=== PATIENT | male | born 1965 | race Caucasian/White ===

== ENCOUNTER 2024-01-16 11:45 | Observation (INO) | payer OTHER ==
[2024-01-16] MEDS ORDERED: Zofran 4 MG/2 ML VIAL ONE (12:20)
[2024-01-16] MEDS ORDERED: Sodium Chloride 0.9% 1000 ML 1,000 ML ONE (12:20)
[2024-01-16] MEDS ORDERED: PROTONIX 40 MG IV IV ONE (12:20)
[2024-01-16] MEDS ORDERED: MORPHINE SULFATE 4 MG INJ ONE (12:20)
[2024-01-16] MEDS: Sodium Chloride 0.9% 1000 ML 1,000 ML IV STA ×2 (12:23→18:42)
[2024-01-16] MEDS: Zofran 4 MG/2 ML VIAL IV ONE (12:27)
[2024-01-16] MEDS: PROTONIX 40 MG IV IV ONE (12:30)
[2024-01-16] MEDS: MORPHINE SULFATE 4 MG INJ IV ONE (12:35)
[2024-01-16 12:56] LABS: BASOPHIL % 0.4 % (0.2-1.2); Basophil (Absolute #) 0.04 x10^3/uL (0.01-0.08); Eosinophil % 0.2 % (0.8-7.0); Eosinophil (Absolute #) 0.02 x10^3/uL (0.04-0.54); Hematocrit 48.1 % (40.1-51.0); Hemoglobin 16.3 g/dL (13.7-17.5); IMMATURE GRAN # 0.07 x10^3u/L (0.001-0.031); IMMATURE GRAN % 0.7 % (0.001-0.429); Lymphocyte (Absolute #) 0.87 x10^3/uL (1.32-3.57); Lymphocytes % 8.3 % (21.8-53.1); Mean Cell Volume 85.6 fL (79.0-92.2); Mean Corpuscular Hgb Concent. 33.9 g/dL (32.3-36.5); Monocyte (Absolute #) 0.33 x10^3/uL (0.30-0.82); Monocytes % 3.1 % (5.3-12.2); Neutrophil % 87.3 % (34.0-67.9); Platelet Count 221 x10^3/uL (163-337); Red Blood Count 5.62 x10^6/uL (4.63-6.08); Red Cell Distribution Width 12.3 % (11.6-14.4); White Blood Count 10.5 x10^3/uL (4.23-9.07)
[2024-01-16 13:19] LABS: ALBUMIN 4.6 g/dL (3.5-5.0); BILIRUBIN,TOTAL 0.8 mg/dL (0.2-1.3); Calcium 10.1 mg/dL (8.4-10.2); Creatinine 1 1.12 mg/dL (0.66-1.25); EST GLOMERULAR FILTRATION RATE 77.1 ML/MIN; Potassium 4.3 mmol/L (3.5-5.1); Total Protein 7.3 g/dL (6.3-8.2)
[2024-01-16 13:26] LABS: Group A Strep NOT DETECTED (NEGATIVE)
[2024-01-16 13:37] LABS: INFLUENZA A NEGATIVE (NEGATIVE); INFLUENZA B NEGATIVE (NEGATIVE); RESPIRATORY SYNCTIAL VIRUS NEGATIVE (NEGATIVE); SARS-CoV-2 Xpert Express NEGATIVE (NEGATIVE)
--- NOTE | 2024-01-16 14:04 | ERPHSYRPT ---
- History of Present Illness Time Seen by Provider: 01/16/24 11:52 Historian: patient Exam Limitations: no limitations Patient Subjective Stated Complaint: Pt states "I am very nauseous help me." Triage Nursing Assessment: Pt presented alert and oriented X 3, skin pwd. PT ambulates with a slow gait. PT moaning. PT vomited x 1 Physician History: 58 years old male presented in the ER with sudden onset moderate to severe abdominal pain with associated nausea and multiple episodes of nonprojectile, nonbilious vomiting without hematemesis for almost half an hour prior to arrival. Patient reports moderate intensity sharp cramping with no significant aggravating or relieving factors. Does report having loose stool this morning. No fever or chills reported. Denies any chest pain palpitations or shortness of breath. No fever or chills reported. Allergies/Adverse Reactions: No Known Drug Allergies Allergy (Verified 01/16/24 17:44) Home Medications: Sertraline HCl 50 mg [Zoloft 50 mg Tablet] 50 mg PO DAILY 01/16/24 [History] Tamsulosin HCl 0.4 mg [Flomax 0.4 MG] 0.4 mg PO DAILY 01/16/24 [History] Hx Tetanus, Diphtheria Vaccination/Date Given: Yes Hx Influenza Vaccination/Date Given: Yes Hx Pneumococcal Vaccination/Date Given: No Immunizations Up to Date: No Travel Risk - International Travel Have you traveled outside of the country in past 3 weeks: No - Emerging Infectious Disease Are you exhibiting symptoms associated with any current EIDs: Yes Symptoms: Other (Please Comment) Comment: nausea - Review of Systems Constitutional: No Symptoms Ears, Nose, & Throat: No Symptoms Respiratory: No Symptoms Cardiac: No Symptoms Abdominal/Gastrointestinal: Abdominal Pain, Nausea, Vomiting, Diarrhea Genitourinary Symptoms: No Symptoms Musculoskeletal: No Symptoms Skin: No Symptoms Neurological: No Symptoms Psychological: No Symptoms Endocrine: No Symptoms Hematologic/Lymphatic: No Symptoms Immunological/Allergic: No Symptoms - Past Medical History Pertinent Past Medical History: Yes Psycho-Social History: Anxiety - Past Surgical History Past Surgical History: Yes Gastrointestinal: Appendectomy - Social History Smoking Status: Former smoker Exposure to second hand smoke: No Drug Use: none - Social Determinants of Health Will the patient participate in the screening: Declined to provide - Nursing Vital Signs Nursing Vital Signs: Initial Vital Signs Temperature 97.7 F 01/16/24 11:53 Pulse Rate 56 L 01/16/24 11:53 Respiratory Rate 20 01/16/24 11:53 Blood Pressure 129/70 01/16/24 11:53 O2 Sat by Pulse Oximetry 100 01/16/24 11:53 Pain Scale Pain Intensity 0 - Physical Exam General Appearance: no apparent distress, alert Eye Exam: PERRL/EOMI Ears, Nose, Throat Exam: normal ENT inspection Neck Exam: normal inspection, full range of motion Respiratory Exam: normal breath sounds, lungs clear Cardiovascular Exam: regular rate/rhythm, normal heart sounds Gastrointestinal/Abdomen Exam: soft, normal bowel sounds, tenderness (Mid to upper abdomen), guarding, other (Positive Nicolas sign) Extremity Exam: normal inspection, normal range of motion Neurologic Exam: alert, oriented x 3, cooperative Skin Exam: normal color SpO2 Interpretation: normal SpO2: 96 O2 Delivery: Room Air - Course EKG Interpreted by Me: RATE (52), Sinus Rhythm, NORMAL AXIS, NORMAL INTERVALS, Q-wave, Non-specific ST Changes Ordered Tests: Medication Summary Generic Name Dose Route Start Last Admin Trade Name Freq PRN Reason Stop Dose Admin Acetaminophen 650 mg 01/17/24 17:12 Acetaminophen 325 Mg Tablet PO 02/16/24 17:11 Q4H PRN PRN PAIN AND/OR FEVER Acetaminophen 650 mg 01/17/24 17:12 Acetaminophen 650 Mg Supp.Rect HI 02/16/24 17:11 Q4H PRN PRN PAIN AND/OR FEVER Hydrocodone Bitart/Acetaminophen 1 tab 01/17/24 17:13 01/17/24 21:23 Hydrocodone/Apap 5/325 1 Tab Tablet PO 01/22/24 17:12 1 tab Q4H PRN PRN Administration PAIN Piperacillin Sod/Tazobactam 100 mls @ 200 mls/hr 01/17/24 00:00 01/17/24 18:51 Sod 3.375 gm/ Sodium Chloride IV 01/20/24 00:00 200 mls/hr Q6HT JAY JAY Administration Cefazolin Sodium 2 gm in 100 mls @ 200 mls/hr 01/17/24 13:15 Cefazolin 2 Gm/100 Ml Nacl IV 02/16/24 13:14 ONCALLTOOR JAY JAY Morphine Sulfate 2 mg 01/17/24 19:06 01/17/24 19:19 Morphine Sulfate 2 Mg/Ml Inj IV 01/22/24 19:05 2 mg Q2H PRN PRN Administration PAIN Ondansetron HCl 4 mg 01/16/24 18:01 01/17/24 08:06 Ondansetron Hcl 4 Mg/2 Ml Vial IV 02/15/24 18:00 4 mg Q6H PRN PRN Administration NAUSEA/VOMITING Pantoprazole Sodium 40 mg 01/16/24 18:15 01/17/24 21:22 Pantoprazole 40 Mg Vial IV 02/15/24 18:14 40 mg Q24H JAY JAY Administration Prochlorperazine Edisylate 10 mg 01/17/24 11:19 Prochlorperazine Edisylate 10 Mg/2 Ml Vial IV 02/15/24 18:00 Q6H PRN PRN NAUSEA/VOMITING Sertraline HCl 50 mg 01/17/24 10:00 01/17/24 18:52 Sertraline Hcl 50 Mg Tab PO 02/16/24 09:59 Not Given DAILY JAY JAY Tamsulosin HCl 0.4 mg 01/17/24 10:00 01/17/24 18:52 Tamsulosin Hcl 0.4 Mg Cap PO 02/16/24 09:59 Not Given DAILY JAY JAY Discontinued Medications Generic Name Dose Route Start Last Admin Trade Name Freq PRN Reason Stop Dose Admin Bupivacaine HCl Confirm 01/17/24 14:38 Bupivacaine Hcl 2.5 Mg/Ml 10 Ml Administered 01/17/24 14:39 Dose 10 ml .ROUTE .STK-MED ONE Droperidol 0.625 mg 01/16/24 16:18 01/16/24 16:35 Droperidol 5 Mg/2 Ml Vial IV 01/16/24 16:19 0.625 mg STAT ONE Administration Droperidol Confirm 01/16/24 16:33 Droperidol 5 Mg/2 Ml Vial Administered 01/16/24 16:34 Dose 5 mg .ROUTE .STK-MED ONE Fentanyl Citrate Confirm 01/17/24 14:39 Fentanyl Citrate 100 Mcg/2 Ml* Vial Administered 01/17/24 14:40 Dose 100 mcg .ROUTE .STK-MED ONE Fentanyl Citrate Confirm 01/17/24 15:37 Fentanyl Citrate 100 Mcg/2 Ml* Vial Administered 01/17/24 15:38 Dose 100 mcg .ROUTE .STK-MED ONE Sodium Chloride 1,000 mls @ 999 mls/hr 01/16/24 12:07 01/16/24 13:49 Sodium Chloride 0.9% 1000 Ml IV 01/16/24 13:07 Infused .Q1H1M STA Infusion Sodium Chloride Confirm 01/16/24 12:20 Sodium Chloride 0.9% 1000 Ml Administered 01/16/24 12:21 Dose 1,000 mls @ ud .ROUTE .STK-MED ONE Piperacillin Sod/Tazobactam 100 mls @ 200 mls/hr 01/16/24 16:28 01/16/24 16:49 Sod 3.375 gm/ Sodium Chloride IV 01/16/24 16:57 200 mls/hr STAT ONE Administration Sodium Chloride 1,000 mls @ 999 mls/hr 01/16/24 18:03 01/16/24 18:42 Sodium Chloride 0.9% 1000 Ml IV 01/16/24 19:03 999 mls/hr .Q1H1M STA Administration Sodium Chloride Confirm 01/16/24 23:46 Sodium Chloride 0.9% Administered 01/16/24 23:47 Dose 100 mls @ ud .ROUTE .STK-MED ONE Sodium Chloride Confirm 01/17/24 05:45 Sodium Chloride 100ml Mini-Bag Plus Administered 01/17/24 05:46 Dose 100 mls @ ud IV .STK-MED ONE Lactated Ringer's Confirm 01/17/24 13:04 Lactated Ringers Administered 01/17/24 13:05 Dose 500 mls @ ud IV .STK-MED ONE Cefoxitin Sodium Confirm 01/17/24 13:04 Mefoxin 2 Gm Premix Administered 01/17/24 13:05 Dose 2 gm in 50 mls @ ud IV .STK-MED ONE Lactated Ringer's 500 mls @ 50 mls/hr 01/17/24 13:30 01/17/24 14:10 Lactated Ringers IV 02/16/24 13:29 50 mls/hr .Q10H JAY JAY Administration Sodium Chloride Confirm 01/17/24 14:45 Sodium Chloride 0.9% 1000 Ml Administered 01/17/24 14:46 Dose 1,000 mls @ ud .ROUTE .STK-MED ONE Meperidine HCl Confirm 01/17/24 16:03 Meperidine Hcl 50 Mg/Ml Carp Administered 01/17/24 16:04 Dose 50 mg .ROUTE .STK-MED ONE Metoclopramide HCl 10 mg 01/16/24 15:44 01/16/24 15:51 Metoclopramide Hcl 10 Mg/2 Ml Vial IV 01/16/24 15:45 10 mg STAT ONE Administration Midazolam HCl Confirm 01/17/24 14:39 Midazolam Hcl 2 Mg/2 Ml Vial Administered 01/17/24 14:40 Dose 2 mg .ROUTE .STK-MED ONE Morphine Sulfate 4 mg 01/16/24 12:07 01/16/24 12:35 Morphine Sulfate 4 Mg/Ml Injection IV 01/16/24 12:08 4 mg STAT ONE Administration Morphine Sulfate Confirm 01/16/24 12:20 Morphine Sulfate 4 Mg/Ml Injection Administered 01/16/24 12:21 Dose 4 mg .ROUTE .STK-MED ONE Morphine Sulfate 2 mg 01/16/24 18:08 01/17/24 08:06 Morphine Sulfate 2 Mg/Ml Inj IV 01/21/24 18:07 2 mg Q2H PRN PRN Administration PAIN Morphine Sulfate 4 mg 01/17/24 08:58 01/17/24 16:58 Morphine Sulfate 4 Mg/Ml Injection IV 01/22/24 08:57 2 mg Q2H PRN PRN Administration PAIN Ondansetron HCl 4 mg 01/16/24 12:07 01/16/24 12:27 Ondansetron Hcl 4 Mg/2 Ml Vial IV 01/16/24 12:08 4 mg STAT ONE Administration Ondansetron HCl Confirm 01/16/24 12:20 Ondansetron Hcl 4 Mg/2 Ml Vial Administered 01/16/24 12:21 Dose 4 mg .ROUTE .STK-MED ONE Ondansetron HCl Confirm 01/17/24 15:41 Ondansetron Hcl 4 Mg/2 Ml Vial Administered 01/17/24 15:42 Dose 4 mg .ROUTE .STK-MED ONE Pantoprazole Sodium 40 mg 01/16/24 12:07 01/16/24 12:30 Pantoprazole 40 Mg Vial IV 01/16/24 12:08 40 mg STAT ONE Administration Pantoprazole Sodium Confirm 01/16/24 12:20 Pantoprazole 40 Mg Vial Administered 01/16/24 12:21 Dose 40 mg IV .STK-MED ONE Piperacillin Sod/Tazobactam Sod Confirm 01/16/24 23:45 Piperacillin/Tazobactam Sodium 3.375 Gm Vial Administered 01/16/24 23:46 Dose 3.375 gm IV .STK-MED ONE Piperacillin Sod/Tazobactam Sod Confirm 01/17/24 05:44 Piperacillin/Tazobactam Sodium 3.375 Gm Vial Administered 01/17/24 05:45 Dose 3.375 gm IV .STK-MED ONE Prochlorperazine Edisylate 10 mg 01/16/24 18:01 01/17/24 10:56 Prochlorperazine Edisylate 10 Mg/2 Ml Vial IM 02/15/24 18:00 10 mg Q6H PRN PRN Administration NAUSEA/VOMITING Propofol Confirm 01/17/24 14:39 Propofol 10 Mg/Ml 20ml Vial Administered 01/17/24 14:40 Dose 200 mg IV .STK-MED ONE Rocuronium [place] Confirm 01/17/24 14:39 Rocuronium [place] 50 Mg/5 Ml Vial Administered 01/17/24 14:40 Dose 50 mg IV .STK-MED ONE Succinylcholine Chloride Confirm 01/17/24 14:39 Succinylcholine Chloride 200mg/10 Ml Vial Administered 01/17/24 14:40 Dose 200 mg .ROUTE .STK-MED ONE Sugammadex Sodium Confirm 01/17/24 15:41 Sugammadex Sodium 200 Mg/2 Ml Vial Administered 01/17/24 15:42 Dose 200 mg IV .STK-MED ONE Lab/Rad Data: Laboratory Result Diagrams 01/16/24 12:07 01/16/24 12:07 Laboratory Results 01/16/24 01/16/24 01/16/24 Range/Units 16:15 14:53 13:26 WBC (4.23-9.07) x10^3/uL RBC (4.63-6.08) x10^6/uL Hgb (13.7-17.5) g/dL Hct (40.1-51.0) % MCV (79.0-92.2) fL MCH (25.7-32.2) pg MCHC (32.3-36.5) g/dL RDW (11.6-14.4) % Plt Count (163-337) x10^3/uL MPV (9.4-12.4) fL Gran % (34.0-67.9) % Immature Gran % (Auto) (0.001-0.429) % Nucleat RBC Rel Count (0.00-0.2) % Eos # (Auto) (0.04-0.54) x10^3/uL Immature Gran # (Auto) (0.001-0.031) x10^3u/L Absolute Lymphs (auto) (1.32-3.57) x10^3/uL Absolute Monos (auto) (0.30-0.82) x10^3/uL Absolute Nucleated RBC (0.00-0.012) x10^3u/L Lymphocytes % (21.8-53.1) % Monocytes % (5.3-12.2) % Eosinophils % (0.8-7.0) % Basophils % (0.2-1.2) % Absolute Granulocytes (1.78-5.38) x10^3/uL Basophils # (0.01-0.08) x10^3/uL Sodium (135-145) mmol/L Potassium (3.5-5.1) mmol/L Chloride (98-107) mmol/L Carbon Dioxide (22-30) mmol/L Anion Gap (5-15) MEQ/L BUN (9-20) mg/dL Creatinine (0.66-1.25) mg/dL Estimated GFR ML/MIN Glucose (74-106) mg/dL Lactic Acid 2.2 H (0.4-2.0) Calcium (8.4-10.2) mg/dL Total Bilirubin (0.2-1.3) mg/dL AST (17-59) U/L ALT (0-50) U/L Alkaline Phosphatase (38-126) U/L Troponin I < 0.012 (0.000-0.033) ng/mL Serum Total Protein (6.3-8.2) g/dL Albumin (3.5-5.0) g/dL Lipase (23-300) U/L Urine Color Yellow (Yellow) Urine Appearance Cloudy A (Clear) Urine pH 8.5 A (4.6-8.0) Ur Specific [place] 1.025 (1.005-1.030) Urine Protein Trace A (Negative) Urine Glucose (UA) Negative (Negative) mg/dL Urine Ketones 15 A (Negative) Urine Blood Negative (Negative) Urine Nitrite Negative (Negative) Urine Bilirubin Negative (Negative) Urine Urobilinogen 0.2 (0.2) mg/dL Ur Leukocyte Esterase Small A (Negative) U Hyaline Cast (Auto) NONE SEEN (0-2) /LPF Urine Microscopic RBC 0-2 (0-5) /HPF Urine Microscopic WBC 6-10 A (0-5) /HPF Ur Epithelial Cells None Seen (None Seen) /HPF Urine Bacteria None Seen (None Seen) /HPF Urine Culture Reflexed YES (NO) Influenza Type A Ag (NEGATIVE) Influenza Type B Ag (NEGATIVE) RSV (PCR) (NEGATIVE) SARS-CoV-2 (PCR) (NEGATIVE) Group A Strep Antibody (NEGATIVE) 01/16/24 01/16/24 01/16/24 Range/Units 12:55 12:15 12:07 WBC (4.23-9.07) x10^3/uL RBC (4.63-6.08) x10^6/uL Hgb (13.7-17.5) g/dL Hct (40.1-51.0) % MCV (79.0-92.2) fL MCH (25.7-32.2) pg MCHC (32.3-36.5) g/dL RDW (11.6-14.4) % Plt Count (163-337) x10^3/uL MPV (9.4-12.4) fL Gran % (34.0-67.9) % Immature Gran % (Auto) (0.001-0.429) % Nucleat RBC Rel Count (0.00-0.2) % Eos # (Auto) (0.04-0.54) x10^3/uL Immature Gran # (Auto) (0.001-0.031) x10^3u/L Absolute Lymphs (auto) (1.32-3.57) x10^3/uL Absolute Monos (auto) (0.30-0.82) x10^3/uL Absolute Nucleated RBC (0.00-0.012) x10^3u/L Lymphocytes % (21.8-53.1) % Monocytes % (5.3-12.2) % Eosinophils % (0.8-7.0) % Basophils % (0.2-1.2) % Absolute Granulocytes (1.78-5.38) x10^3/uL Basophils # (0.01-0.08) x10^3/uL Sodium 143 (135-145) mmol/L Potassium 4.3 (3.5-5.1) mmol/L Chloride 112 H (98-107) mmol/L Carbon Dioxide 18 L (22-30) mmol/L Anion Gap 17.0 H (5-15) MEQ/L BUN 21 H (9-20) mg/dL Creatinine 1.12 (0.66-1.25) mg/dL Estimated GFR 77.1 ML/MIN Glucose 142 H (74-106) mg/dL Lactic Acid (0.4-2.0) Calcium 10.1 (8.4-10.2) mg/dL Total Bilirubin 0.80 (0.2-1.3) mg/dL AST 32 (17-59) U/L ALT 35 (0-50) U/L Alkaline Phosphatase 55 (38-126) U/L Troponin I < 0.012 (0.000-0.033) ng/mL Serum Total Protein 7.3 (6.3-8.2) g/dL Albumin 4.6 (3.5-5.0) g/dL Lipase 171 (23-300) U/L Urine Color (Yellow) Urine Appearance (Clear) Urine pH (4.6-8.0) Ur Specific [place] (1.005-1.030) Urine Protein (Negative) Urine Glucose (UA) (Negative) mg/dL Urine Ketones (Negative) Urine Blood (Negative) Urine Nitrite (Negative) Urine Bilirubin (Negative) Urine Urobilinogen (0.2) mg/dL Ur Leukocyte Esterase (Negative) U Hyaline Cast (Auto) (0-2) /LPF Urine Microscopic RBC (0-5) /HPF Urine Microscopic WBC (0-5) /HPF Ur Epithelial Cells (None Seen) /HPF Urine Bacteria (None Seen) /HPF Urine Culture Reflexed (NO) Influenza Type A Ag NEGATIVE (NEGATIVE) Influenza Type B Ag NEGATIVE (NEGATIVE) RSV (PCR) NEGATIVE (NEGATIVE) SARS-CoV-2 (PCR) NEGATIVE (NEGATIVE) Group A Strep Antibody NOT DETECTED (NEGATIVE) 01/16/24 01/16/24 Range/Units 12:07 12:07 WBC 10.5 H (4.23-9.07) x10^3/uL RBC 5.62 (4.63-6.08) x10^6/uL Hgb 16.3 (13.7-17.5) g/dL Hct 48.1 (40.1-51.0) % MCV 85.6 (79.0-92.2) fL MCH 29.0 (25.7-32.2) pg MCHC 33.9 (32.3-36.5) g/dL RDW 12.3 (11.6-14.4) % Plt Count 221 (163-337) x10^3/uL MPV 11.0 (9.4-12.4) fL Gran % 87.3 H (34.0-67.9) % Immature Gran % (Auto) 0.7 H (0.001-0.429) % Nucleat RBC Rel Count 0.0 (0.00-0.2) % Eos # (Auto) 0.02 L (0.04-0.54) x10^3/uL Immature Gran # (Auto) 0.07 H (0.001-0.031) x10^3u/L Absolute Lymphs (auto) 0.87 L (1.32-3.57) x10^3/uL Absolute Monos (auto) 0.33 (0.30-0.82) x10^3/uL Absolute Nucleated RBC 0.00 (0.00-0.012) x10^3u/L Lymphocytes % 8.3 L (21.8-53.1) % Monocytes % 3.1 L (5.3-12.2) % Eosinophils % 0.2 L (0.8-7.0) % Basophils % 0.4 (0.2-1.2) % Absolute Granulocytes 9.20 H (1.78-5.38) x10^3/uL Basophils # 0.04 (0.01-0.08) x10^3/uL Sodium (135-145) mmol/L Potassium (3.5-5.1) mmol/L Chloride (98-107) mmol/L Carbon Dioxide (22-30) mmol/L Anion Gap (5-15) MEQ/L BUN (9-20) mg/dL Creatinine (0.66-1.25) mg/dL Estimated GFR ML/MIN Glucose (74-106) mg/dL Lactic Acid 2.6 H (0.4-2.0) Calcium (8.4-10.2) mg/dL Total Bilirubin (0.2-1.3) mg/dL AST (17-59) U/L ALT (0-50) U/L Alkaline Phosphatase (38-126) U/L Troponin I (0.000-0.033) ng/mL Serum Total Protein (6.3-8.2) g/dL Albumin (3.5-5.0) g/dL Lipase (23-300) U/L Urine Color (Yellow) Urine Appearance (Clear) Urine pH (4.6-8.0) Ur Specific [place] (1.005-1.030) Urine Protein (Negative) Urine Glucose (UA) (Negative) mg/dL Urine Ketones (Negative) Urine Blood (Negative) Urine Nitrite (Negative) Urine Bilirubin (Negative) Urine Urobilinogen (0.2) mg/dL Ur Leukocyte Esterase (Negative) U Hyaline Cast (Auto) (0-2) /LPF Urine Microscopic RBC (0-5) /HPF Urine Microscopic WBC (0-5) /HPF Ur Epithelial Cells (None Seen) /HPF Urine Bacteria (None Seen) /HPF Urine Culture Reflexed (NO) Influenza Type A Ag (NEGATIVE) Influenza Type B Ag (NEGATIVE) RSV (PCR) (NEGATIVE) SARS-CoV-2 (PCR) (NEGATIVE) Group A Strep Antibody (NEGATIVE) - Progress Progress: pain not gone completely Progress Note: 01/16/24 16:24 58 years old is evaluated in the ER for sudden onset abdominal pain with nausea and vomiting. He is given fluids and symptomatic treatment with multiple doses of pain medication and antiemetic. Has a white count of 10, chemistries some element of dehydration with initial lactate of 2.6. Normal liver enzymes and total bili. Patient CT abdomen pelvis with contrast showed mildly distended gallbladder with tiny gallstones with no choledocholithiasis. Discussed with Dr. Burdick, reviewed history, workup, recommended admission to hospitalist services and surgery would be consult and possibly cholecystectomy tomorrow afternoon. Will start him on Zosyn. I have shared the results of workup and general surgery recommendation with the patient and family and they agreed to stay. Discussed with Dr. Hwang and patient is being admitted to hospitalist service. Discussed with .: Bing Counseled pt/family regarding: lab results, diagnosis, rad results Medical Desision Making - Independent Historian Additional History obtained from: Spouse - Discussion of managment Care discussed with:: specialist (Dr. Burdick neurosurgery and Dr. Hwang hospitalist) Reviewed:: Test results Agreed on:: Treatment plan, place in obs Will see patient: in hospital - Diagnostic Testing Diagnostic test were ordered, analyzed, and reviewed by me: Yes Radiological Interpretation: Reviewed by me - Risk of complications The pt has a mod risk of morbidity or mortality based on: Need for prescription drug management The pt has a high risk of morbidity or mortality based on: Decision regarding hospitilization or escalation of hosp level of care - Departure Departure Disposition: Observation Clinical Impression: Acute cholecystitis Condition: Stable Critical Care Time: No
[2024-01-16 14:05] LABS: Appearance Cloudy (Clear); Bacteria None Seen /HPF (None Seen); Bilirubin Negative (Negative); Blood Negative (Negative); Epithelial Cells None Seen /HPF (None Seen); Glucose, Urine Negative (Negative); Hyaline Casts NONE SEEN /LPF (0-2); Ketones 15 (Negative); Leukocyte Esterase Small (Negative); Nitrite Negative (Negative); Ph 8.5 (4.6-8.0); Protein,Urine Dip Trace (Negative); RBC 0-2 /HPF (0-5); Specific Gravity 1.025 (1.005-1.030); Urobilinogen 0.2 mg/dL (0.2)
--- NOTE | 2024-01-16 15:07 | XRAY ---
Indication: Pain and vomiting. Multiple contiguous axial images obtained through the abdomen and pelvis using 80 cc Isovue 370 contrast. Comparison: None Lung bases demonstrates dependent atelectasis. No infiltrate or effusion. Heart not enlarged. Noncontrasted stomach and bowel loops appear nonobstructed. Previous appendectomy. No free fluid/air. Diffuse fatty liver. Mild distended gallbladder with a few tiny gallstones, largest 5 mm. Nonobstructing right renal punctate calculus. Benign chunky prostate calcifications. Remaining pancreas, spleen, adrenal glands, kidneys, ureters, bladder, and aorta are unremarkable. No pathologic retroperitoneal lymphadenopathy. Osseous structures intact with mild/moderate degenerative changes throughout lumbar spine greatest at L1-L2 and mild dextroscoliosis centered at L2. Incidental undescended left testicle seen in inguinal canal. Impression: 1. Tiny gallstones, fatty liver, nonobstructing right renal punctate calculus, benign prostate calcifications, undescended left testicle, and chronic bony findings. 2. Remaining CT abdomen/pelvis with contrast exam is negative.
[2024-01-16] MEDS: Reglan 10 MG/2 ML IV ONE (15:51)
[2024-01-16] MEDS: PIPERACILLIN/TAZOBACTAM 3.375 GM in Sodium Chloride 100ML MINI-BAG PLUS 100 ML IV ONE (16:49)
--- NOTE | 2024-01-16 17:57 | PCM.HP ---
History of Present Illness - Chief Complaint Chief Complaint: Acute cholecystitis Date: 01/16/24 History of Present Illness: is a 58 year old male with pmhx of anxiety, BPH, and obesity. He presented in the ER with sudden onset moderate to severe abdominal pain with associated nausea and multiple episodes of nonprojectile, nonbilious vomiting without hematemesis for almost half an hour prior to arrival. Patient reports moderate intensity sharp cramping with no significant aggravating or relieving factors. Does report having loose stool this morning. No fever or chills reported. Denies any chest pain palpitations or shortness of breath. No fever or chills reported. In ER he was found to be septic with a lactic acid of 2.6, and repeat of 2.2. WBC 10,5, Co2 18, elevated resp and HR. CT shows distended gallbladder. General surgery called by ER physician and plan is for surgery in AM. Pt to be NPO after midnight. Nausea has resolved since admission. - Review of Systems Constitutional: No Fever, No Chills Eyes: No Symptoms Ears, Nose, & Throat: No Symptoms Respiratory: No Cough, No Short Of Breath Cardiac: No Chest Pain, No Edema, No Syncope Abdominal/Gastrointestinal: Abdominal Pain, Nausea, Vomiting, Diarrhea Genitourinary Symptoms: No Dysuria Musculoskeletal: No Back Pain, No Neck Pain Skin: No Rash Neurological: No Dizziness, No Focal Weakness, No Sensory Changes Psychological: No Symptoms Endocrine: No Symptoms Hematologic/Lymphatic: No Symptoms Immunological/Allergic: No Symptoms Medications & Allergies Home Medications: Home Medication List Sertraline HCl 50 mg [Zoloft 50 mg Tablet] 50 mg PO DAILY 01/16/24 [History Confirmed 01/16/24] Tamsulosin HCl 0.4 mg [Flomax 0.4 MG] 0.4 mg PO DAILY 01/16/24 [History Confirmed 01/16/24] Allergies/Adverse Reactions: Allergies Allergy/AdvReac Type Severity Reaction Status Date / Time No Known Drug Allergies Allergy Verified 01/16/24 17:44 - Past Medical History Past Medical History: Yes Pyscho-Social History: Anxiety Comment: BPH - Past Surgical History Past Surgical History: Yes GI Surgical History: Appendectomy Significant Family History: no pertinent family hx - Social History Smoking Status: Former smoker Exposure to second hand smoke: No Alcohol: None Drug Use: none - Social Determinants of Health Will the patient participate in the screening: Declined to provide - Physical Exam Vital Signs: Vital Signs - 24 hr Temp Pulse Resp BP BP Pulse Ox 01/16/24 17:00 68 165/88 01/16/24 16:45 58 L 27 H 163/85 98 01/16/24 16:31 47 L 13 135/70 01/16/24 16:28 96 01/16/24 16:16 50 L 25 H 157/99 01/16/24 16:01 54 L 15 127/79 01/16/24 15:46 21 160/77 01/16/24 15:31 59 L 21 133/98 01/16/24 15:17 56 L 23 124/85 01/16/24 15:01 49 L 16 150/87 01/16/24 14:46 51 L 23 144/78 01/16/24 14:29 58 L 21 132/87 99 01/16/24 14:01 59 L 20 135/71 98 01/16/24 13:46 20 109/86 01/16/24 13:31 47 L 23 131/69 01/16/24 13:16 45 L 18 127/93 01/16/24 13:00 45 L 20 147/81 01/16/24 12:45 46 L 14 139/99 01/16/24 12:31 61 22 131/91 87 L 01/16/24 12:16 59 L 19 124/76 92 L 01/16/24 11:53 97.7 F 56 L 20 129/70 100 General Appearance: no apparent distress, alert Neurologic Exam: alert, oriented x 3, cooperative, normal mood/affect, nml cerebellar function, nml station & gait, sensation nml, No motor deficits Eye Exam: PERRL/EOMI, eyes nml inspection Ears, Nose, Throat Exam: normal ENT inspection, TMs normal, pharynx normal, moist mucous membranes Neck Exam: normal inspection, non-tender, supple, full range of motion Respiratory Exam: normal breath sounds, lungs clear, No respiratory distress Cardiovascular Exam: regular rate/rhythm, normal heart sounds, normal peripheral pulses Gastrointestinal/Abdomen Exam: soft, normal bowel sounds, tenderness (RUQ, LUQ, LLQ with palpation), No mass Back Exam: normal inspection, normal range of motion, No CVA tenderness, No vertebral tenderness Extremity Exam: normal inspection, normal range of motion, pelvis stable Skin Exam: normal color, warm, dry, No rash Lymphatic Exam: No adenopathy Results - Labs Lab/Micro Results: Lab Results-Last 24 Hours 01/16/24 01/16/24 01/16/24 Range/Units 12:07 12:07 12:07 WBC 10.5 H (4.23-9.07) x10^3/uL RBC 5.62 (4.63-6.08) x10^6/uL Hgb 16.3 (13.7-17.5) g/dL Hct 48.1 (40.1-51.0) % MCV 85.6 (79.0-92.2) fL MCH 29.0 (25.7-32.2) pg MCHC 33.9 (32.3-36.5) g/dL RDW 12.3 (11.6-14.4) % Plt Count 221 (163-337) x10^3/uL MPV 11.0 (9.4-12.4) fL Gran % 87.3 H (34.0-67.9) % Immature Gran % (Auto) 0.7 H (0.001-0.429) % Nucleat RBC Rel Count 0.0 (0.00-0.2) % Eos # (Auto) 0.02 L (0.04-0.54) x10^3/uL Immature Gran # (Auto) 0.07 H (0.001-0.031) x10^3u/L Absolute Lymphs (auto) 0.87 L (1.32-3.57) x10^3/uL Absolute Monos (auto) 0.33 (0.30-0.82) x10^3/uL Absolute Nucleated RBC 0.00 (0.00-0.012) x10^3u/L Lymphocytes % 8.3 L (21.8-53.1) % Monocytes % 3.1 L (5.3-12.2) % Eosinophils % 0.2 L (0.8-7.0) % Basophils % 0.4 (0.2-1.2) % Absolute Granulocytes 9.20 H (1.78-5.38) x10^3/uL Basophils # 0.04 (0.01-0.08) x10^3/uL Sodium 143 (135-145) mmol/L Potassium 4.3 (3.5-5.1) mmol/L Chloride 112 H (98-107) mmol/L Carbon Dioxide 18 L (22-30) mmol/L Anion Gap 17.0 H (5-15) MEQ/L BUN 21 H (9-20) mg/dL Creatinine 1.12 (0.66-1.25) mg/dL Estimated GFR 77.1 ML/MIN Glucose 142 H (74-106) mg/dL Lactic Acid 2.6 H (0.4-2.0) Calcium 10.1 (8.4-10.2) mg/dL Total Bilirubin 0.80 (0.2-1.3) mg/dL AST 32 (17-59) U/L ALT 35 (0-50) U/L Alkaline Phosphatase 55 (38-126) U/L Troponin I (0.000-0.033) ng/mL Serum Total Protein 7.3 (6.3-8.2) g/dL Albumin 4.6 (3.5-5.0) g/dL Lipase 171 (23-300) U/L Urine Color (Yellow) Urine Appearance (Clear) Urine pH (4.6-8.0) Ur Specific Irving (1.005-1.030) Urine Protein (Negative) Urine Glucose (UA) (Negative) mg/dL Urine Ketones (Negative) Urine Blood (Negative) Urine Nitrite (Negative) Urine Bilirubin (Negative) Urine Urobilinogen (0.2) mg/dL Ur Leukocyte Esterase (Negative) U Hyaline Cast (Auto) (0-2) /LPF Urine Microscopic RBC (0-5) /HPF Urine Microscopic WBC (0-5) /HPF Ur Epithelial Cells (None Seen) /HPF Urine Bacteria (None Seen) /HPF Urine Culture Reflexed (NO) Influenza Type A Ag (NEGATIVE) Influenza Type B Ag (NEGATIVE) RSV (PCR) (NEGATIVE) SARS-CoV-2 (PCR) (NEGATIVE) Group A Strep Antibody (NEGATIVE) 01/16/24 01/16/24 01/16/24 Range/Units 12:15 12:55 13:26 WBC (4.23-9.07) x10^3/uL RBC (4.63-6.08) x10^6/uL Hgb (13.7-17.5) g/dL Hct (40.1-51.0) % MCV (79.0-92.2) fL MCH (25.7-32.2) pg MCHC (32.3-36.5) g/dL RDW (11.6-14.4) % Plt Count (163-337) x10^3/uL MPV (9.4-12.4) fL Gran % (34.0-67.9) % Immature Gran % (Auto) (0.001-0.429) % Nucleat RBC Rel Count (0.00-0.2) % Eos # (Auto) (0.04-0.54) x10^3/uL Immature Gran # (Auto) (0.001-0.031) x10^3u/L Absolute Lymphs (auto) (1.32-3.57) x10^3/uL Absolute Monos (auto) (0.30-0.82) x10^3/uL Absolute Nucleated RBC (0.00-0.012) x10^3u/L Lymphocytes % (21.8-53.1) % Monocytes % (5.3-12.2) % Eosinophils % (0.8-7.0) % Basophils % (0.2-1.2) % Absolute Granulocytes (1.78-5.38) x10^3/uL Basophils # (0.01-0.08) x10^3/uL Sodium (135-145) mmol/L Potassium (3.5-5.1) mmol/L Chloride (98-107) mmol/L Carbon Dioxide (22-30) mmol/L Anion Gap (5-15) MEQ/L BUN (9-20) mg/dL Creatinine (0.66-1.25) mg/dL Estimated GFR ML/MIN Glucose (74-106) mg/dL Lactic Acid (0.4-2.0) Calcium (8.4-10.2) mg/dL Total Bilirubin (0.2-1.3) mg/dL AST (17-59) U/L ALT (0-50) U/L Alkaline Phosphatase (38-126) U/L Troponin I < 0.012 (0.000-0.033) ng/mL Serum Total Protein (6.3-8.2) g/dL Albumin (3.5-5.0) g/dL Lipase (23-300) U/L Urine Color Yellow (Yellow) Urine Appearance Cloudy A (Clear) Urine pH 8.5 A (4.6-8.0) Ur Specific Irving 1.025 (1.005-1.030) Urine Protein Trace A (Negative) Urine Glucose (UA) Negative (Negative) mg/dL Urine Ketones 15 A (Negative) Urine Blood Negative (Negative) Urine Nitrite Negative (Negative) Urine Bilirubin Negative (Negative) Urine Urobilinogen 0.2 (0.2) mg/dL Ur Leukocyte Esterase Small A (Negative) U Hyaline Cast (Auto) NONE SEEN (0-2) /LPF Urine Microscopic RBC 0-2 (0-5) /HPF Urine Microscopic WBC 6-10 A (0-5) /HPF Ur Epithelial Cells None Seen (None Seen) /HPF Urine Bacteria None Seen (None Seen) /HPF Urine Culture Reflexed YES (NO) Influenza Type A Ag NEGATIVE (NEGATIVE) Influenza Type B Ag NEGATIVE (NEGATIVE) RSV (PCR) NEGATIVE (NEGATIVE) SARS-CoV-2 (PCR) NEGATIVE (NEGATIVE) Group A Strep Antibody NOT DETECTED (NEGATIVE) 01/16/24 01/16/24 Range/Units 14:53 16:15 WBC (4.23-9.07) x10^3/uL RBC (4.63-6.08) x10^6/uL Hgb (13.7-17.5) g/dL Hct (40.1-51.0) % MCV (79.0-92.2) fL MCH (25.7-32.2) pg MCHC (32.3-36.5) g/dL RDW (11.6-14.4) % Plt Count (163-337) x10^3/uL MPV (9.4-12.4) fL Gran % (34.0-67.9) % Immature Gran % (Auto) (0.001-0.429) % Nucleat RBC Rel Count (0.00-0.2) % Eos # (Auto) (0.04-0.54) x10^3/uL Immature Gran # (Auto) (0.001-0.031) x10^3u/L Absolute Lymphs (auto) (1.32-3.57) x10^3/uL Absolute Monos (auto) (0.30-0.82) x10^3/uL Absolute Nucleated RBC (0.00-0.012) x10^3u/L Lymphocytes % (21.8-53.1) % Monocytes % (5.3-12.2) % Eosinophils % (0.8-7.0) % Basophils % (0.2-1.2) % Absolute Granulocytes (1.78-5.38) x10^3/uL Basophils # (0.01-0.08) x10^3/uL Sodium (135-145) mmol/L Potassium (3.5-5.1) mmol/L Chloride (98-107) mmol/L Carbon Dioxide (22-30) mmol/L Anion Gap (5-15) MEQ/L BUN (9-20) mg/dL Creatinine (0.66-1.25) mg/dL Estimated GFR ML/MIN Glucose (74-106) mg/dL Lactic Acid 2.2 H (0.4-2.0) Calcium (8.4-10.2) mg/dL Total Bilirubin (0.2-1.3) mg/dL AST (17-59) U/L ALT (0-50) U/L Alkaline Phosphatase (38-126) U/L Troponin I < 0.012 (0.000-0.033) ng/mL Serum Total Protein (6.3-8.2) g/dL Albumin (3.5-5.0) g/dL Lipase (23-300) U/L Urine Color (Yellow) Urine Appearance (Clear) Urine pH (4.6-8.0) Ur Specific Irving (1.005-1.030) Urine Protein (Negative) Urine Glucose (UA) (Negative) mg/dL Urine Ketones (Negative) Urine Blood (Negative) Urine Nitrite (Negative) Urine Bilirubin (Negative) Urine Urobilinogen (0.2) mg/dL Ur Leukocyte Esterase (Negative) U Hyaline Cast (Auto) (0-2) /LPF Urine Microscopic RBC (0-5) /HPF Urine Microscopic WBC (0-5) /HPF Ur Epithelial Cells (None Seen) /HPF Urine Bacteria (None Seen) /HPF Urine Culture Reflexed (NO) Influenza Type A Ag (NEGATIVE) Influenza Type B Ag (NEGATIVE) RSV (PCR) (NEGATIVE) SARS-CoV-2 (PCR) (NEGATIVE) Group A Strep Antibody (NEGATIVE) - Radiology Impressions Radiology Exams & Impressions: Radiology Procedures Category Date Time Status ABDOMEN AND PELVIS W CONTRAST [CT] Stat Exams 01/16/24 12:08 Completed Assessment/Plan (1) Acute cholecystitis Current Visit: Yes Status: Acute Assessment & Plan: - IV zosyn - PRN nausea meds - IV Morphine PRN - Plan is for surgery in AM - NPO at midnight - IV fluid bolus x2 - BC x2 - CBC, CMP reviewed - as seen on CT abd/pelvis Code(s): K81.0 - ACUTE CHOLECYSTITIS (2) Sepsis Current Visit: Yes Status: Acute Assessment & Plan: - 2:2 cholecystitis - Lactic acid on admission 2.6 1 lNS gave then LA repeated in ER and 2.2 - repeat 1L NS bolus- will recheck LA 3 hours after - Resp > 20, HR > 90, Co2 18 - IV antibiotics - UC pending - BC x2 (3) Anxiety Current Visit: Yes Status: Chronic Assessment & Plan: - Continue Zoloft Code(s): F41.9 - ANXIETY DISORDER, UNSPECIFIED (4) BPH (benign prostatic hyperplasia) Current Visit: Yes Status: Chronic Assessment & Plan: - continue flomax Code(s): N40.0 - BENIGN PROSTATIC HYPERPLASIA WITHOUT LOWER URINRY TRACT SYMP (5) Obesity (BMI 30.0-34.9) Current Visit: Yes Status: Chronic Assessment & Plan: - advised diet and exercise control Code(s): E66.811 - OBESITY, CLASS 1 (6) Metabolic acidosis Current Visit: Yes Status: Acute Assessment & Plan: - 2:2 N/V/D - IVF - Co2 18- trend Code(s): E87.20 - ACIDOSIS, UNSPECIFIED (7) Dehydration Current Visit: Yes Status: Acute Assessment & Plan: - IVF - anion gap 17- trend - 2:2 N/V/D - start clears today then NPO at midnight for surgery in AM VTE: SCD's PPI: protonix Next of KIN: spouse- Preet Castro [phone] D/C plan: 1-2 days Code status: Full Code(s): E86.0 - DEHYDRATION
[2024-01-16] MEDS: PROTONIX 40 MG IV IV SCH (18:42)
[2024-01-16] MEDS: Zofran 4 MG/2 ML VIAL IV PRN (20:06)
[2024-01-16] MEDS: MORPHINE SULFATE 2 MG INJ IV PRN (20:06)
[2024-01-16] MEDS: Compazine 10 MG/2 ML IM PRN (21:53)
[2024-01-16] MEDS ORDERED: PIPERACILLIN/TAZOBACTAM IV ONE (23:45)
[2024-01-16] MEDS ORDERED: Sodium Chloride 0.9% 100 ML ONE (23:46)
[2024-01-16] MEDS: PIPERACILLIN/TAZOBACTAM 3.375 GM in Sodium Chloride 100ML MINI-BAG PLUS 100 ML IV SCH (23:55)
[2024-01-17 05:27] LABS: Hematocrit 40.4 % (40.1-51.0); Hemoglobin 13.5 g/dL (13.7-17.5); Mean Corpuscular Hemoglobin 28.7 pg (25.7-32.2); Mean Corpuscular Hgb Concent. 33.4 g/dL (32.3-36.5); Mean Platelet Volume 11.2 fL (9.4-12.4); Platelet Count 207 x10^3/uL (163-337); Red Cell Distribution Width 12.6 % (11.6-14.4); White Blood Count 11.1 x10^3/uL (4.23-9.07)
[2024-01-17 05:44] LABS: ALBUMIN 3.8 g/dL (3.5-5.0); ANION GAP 13.5 MEQ/L (5-15); BILIRUBIN,TOTAL 0.9 mg/dL (0.2-1.3); Creatinine 1 1.18 mg/dL (0.66-1.25); EST GLOMERULAR FILTRATION RATE 72.4 ML/MIN; Potassium 3.7 mmol/L (3.5-5.1); Total Protein 6.3 g/dL (6.3-8.2)
[2024-01-17] MEDS ORDERED: PIPERACILLIN/TAZOBACTAM IV ONE (05:44)
[2024-01-17] MEDS ORDERED: Sodium Chloride 100ML MINI-BAG PLUS 100 ML IV ONE (05:45)
[2024-01-17] MEDS: MORPHINE SULFATE 4 MG INJ IV PRN (10:22)
[2024-01-17] MEDS ORDERED: Compazine 10 MG/2 ML IV PRN (11:19)
[2024-01-17] MEDS ORDERED: MEFOXIN 2 GM PREMIX** 2 GM/50 ML ML IV ONE (13:04)
[2024-01-17] MEDS ORDERED: Lactated Ringers 500 ML IV ONE (13:04)
[2024-01-17] MEDS ORDERED: CEFAZOLIN 2 GM/100 ML NaCl 2 GM/100 ML IVPB IV SCH (13:15)
[2024-01-17] MEDS: Lactated Ringers 500 ML IV SCH (14:10)
[2024-01-17] MEDS ORDERED: Sensorcaine 0.25% 10 ML ONE (14:38)
[2024-01-17] MEDS ORDERED: Versed 2 MG/2 ML Injection ONE (14:39)
[2024-01-17] MEDS ORDERED: Quelicin Fliptop 200 MG/10 ML ONE (14:39)
[2024-01-17] MEDS ORDERED: DIPRIVAN 200 MG/20 ML IV ONE (14:39)
[2024-01-17] MEDS ORDERED: ROCURONIUM BROMIDE IV ONE (14:39)
[2024-01-17] MEDS ORDERED: SUBLIMAZE 100 MCG/2 ML ONE ×2 (14:39→15:37)
[2024-01-17] MEDS ORDERED: Sodium Chloride 0.9% 1000 ML 1,000 ML ONE (14:45)
[2024-01-17] MEDS ORDERED: Zofran 4 MG/2 ML VIAL ONE (15:41)
[2024-01-17] MEDS ORDERED: BRIDION 200MG/2ML IV ONE (15:41)
[2024-01-17] MEDS ORDERED: DEMEROL 50 MG ONE (16:03)
--- NOTE | 2024-01-17 16:06 | PCM.NOTE ---
Date and Time: 01/17/24 1600 Subjective Assessment: 01/16/24 is a 58 year old male with pmhx of anxiety, BPH, and obesity. He presented in the ER with sudden onset moderate to severe abdominal pain with associated nausea and multiple episodes of nonprojectile, nonbilious vomiting without hematemesis for almost half an hour prior to arrival. Patient reports moderate intensity sharp cramping with no significant aggravating or relieving factors. Does report having loose stool this morning. No fever or chills reported. Denies any chest pain palpitations or shortness of breath. No fever or chills reported. In ER he was found to be septic with a lactic acid of 2.6, and repeat of 2.2. WBC 10,5, Co2 18, elevated resp and HR. CT shows distended gallbladder. General surgery called by ER physician and plan is for surgery in AM. Pt to be NPO after midnight. Nausea has resolved since admission. 01/17/24 Pt resting in bed. He has had increased pain all night and receiving morphine 2 mg Q2 hours. Increased pain med to 4mg Q2 hours. Continue Zosyn. Plan is for surgery this evening. Lactic acid WNL today. Pt denies any further concerns at this time. - Review of Systems Constitutional: No Fever, No Chills Eyes: No Symptoms Ears, Nose, & Throat: No Symptoms Respiratory: No Cough, No Short Of Breath Cardiac: No Chest Pain, No Edema, No Syncope Abdominal/Gastrointestinal: Abdominal Pain, No Nausea, No Vomiting, No Diarrhea Genitourinary Symptoms: No Dysuria Musculoskeletal: No Back Pain, No Neck Pain Skin: No Rash Neurological: No Dizziness, No Focal Weakness, No Sensory Changes Psychological: No Symptoms Endocrine: No Symptoms Hematologic/Lymphatic: No Symptoms Immunological/Allergic: No Symptoms Objective Exam General Appearance: no apparent distress, alert, obese Neurologic Exam: alert, oriented x 3, cooperative, normal mood/affect, nml cerebellar function, sensation nml, No motor deficits Skin Exam: normal color, warm, dry Eye Exam: PERRL, EOMI, eyes nml inspection Ears, Nose, Throat Exam: normal ENT inspection, pharynx normal, moist mucous membranes Neck Exam: normal inspection, non-tender, supple, full range of motion Respiratory Exam: normal breath sounds, lungs clear, No respiratory distress Cardiovascular Exam: regular rate/rhythm, normal heart sounds Gastrointestinal/Abdomen Exam: soft, tenderness, distention, No mass Extremity Exam: normal inspection, normal range of motion Back Exam: normal inspection, normal range of motion, No CVA tenderness, No vert ebral tenderness Male Genitalia Exam: deferred Rectal Exam: deferred Objective Data Vital Signs: Vital Signs - 24 hr Temp Pulse Resp BP BP Pulse Ox 01/17/24 11:31 97.3 F 55 L 16 101/56 91 L 01/17/24 08:00 98.3 F 56 L 16 109/62 92 L 01/17/24 07:37 97.9 F 56 L 16 97/54 95 01/17/24 04:00 97.9 F 56 L 16 97/54 95 01/16/24 23:31 97.3 F 64 18 140/71 94 L 01/16/24 20:00 97.7 F 57 L 19 117/67 96 01/16/24 17:44 98.4 F 57 L 19 129/67 96 01/16/24 17:00 68 165/88 01/16/24 16:45 58 L 27 H 163/85 98 01/16/24 16:31 47 L 13 135/70 01/16/24 16:28 96 01/16/24 16:16 50 L 25 H 157/99 01/16/24 16:01 54 L 15 127/79 Pain Assessment - Last Documented Pain Intensity 2 Pain Scale Used 0-10 Pain Scale Intake and Output: Intake & Output 01/15/24 01/16/24 01/17/24 01/18/24 11:59 11:59 11:59 11:59 Intake Total 200 100 Balance 200 100 Weight 106.594 kg 106.3 kg Lab Results: Lab Results-Last 24 Hours 01/16/24 01/16/24 01/16/24 Range/Units 14:53 16:15 20:05 WBC (4.23-9.07) x10^3/uL RBC (4.63-6.08) x10^6/uL Hgb (13.7-17.5) g/dL Hct (40.1-51.0) % MCV (79.0-92.2) fL MCH (25.7-32.2) pg MCHC (32.3-36.5) g/dL RDW (11.6-14.4) % Plt Count (163-337) x10^3/uL MPV (9.4-12.4) fL Sodium (135-145) mmol/L Potassium (3.5-5.1) mmol/L Chloride (98-107) mmol/L Carbon Dioxide (22-30) mmol/L Anion Gap (5-15) MEQ/L BUN (9-20) mg/dL Creatinine (0.66-1.25) mg/dL Estimated GFR ML/MIN Glucose (74-106) mg/dL Hemoglobin A1c (4.5-6.0) % Lactic Acid 2.2 H 2.9 H (0.4-2.0) Calcium (8.4-10.2) mg/dL Total Bilirubin (0.2-1.3) mg/dL AST (17-59) U/L ALT (0-50) U/L Alkaline Phosphatase (38-126) U/L Troponin I < 0.012 (0.000-0.033) ng/mL Serum Total Protein (6.3-8.2) g/dL Albumin (3.5-5.0) g/dL 01/16/24 01/17/24 01/17/24 Range/Units 20:06 04:55 05:08 WBC 11.1 H (4.23-9.07) x10^3/uL RBC 4.70 (4.63-6.08) x10^6/uL Hgb 13.5 L (13.7-17.5) g/dL Hct 40.4 (40.1-51.0) % MCV 86.0 (79.0-92.2) fL MCH 28.7 (25.7-32.2) pg MCHC 33.4 (32.3-36.5) g/dL RDW 12.6 (11.6-14.4) % Plt Count 207 (163-337) x10^3/uL MPV 11.2 (9.4-12.4) fL Sodium (135-145) mmol/L Potassium (3.5-5.1) mmol/L Chloride (98-107) mmol/L Carbon Dioxide (22-30) mmol/L Anion Gap (5-15) MEQ/L BUN (9-20) mg/dL Creatinine (0.66-1.25) mg/dL Estimated GFR ML/MIN Glucose (74-106) mg/dL Hemoglobin A1c (4.5-6.0) % Lactic Acid 1.0 (0.4-2.0) Calcium (8.4-10.2) mg/dL Total Bilirubin (0.2-1.3) mg/dL AST (17-59) U/L ALT (0-50) U/L Alkaline Phosphatase (38-126) U/L Troponin I < 0.012 (0.000-0.033) ng/mL Serum Total Protein (6.3-8.2) g/dL Albumin (3.5-5.0) g/dL 01/17/24 01/17/24 Range/Units 05:08 05:15 WBC (4.23-9.07) x10^3/uL RBC (4.63-6.08) x10^6/uL Hgb (13.7-17.5) g/dL Hct (40.1-51.0) % MCV (79.0-92.2) fL MCH (25.7-32.2) pg MCHC (32.3-36.5) g/dL RDW (11.6-14.4) % Plt Count (163-337) x10^3/uL MPV (9.4-12.4) fL Sodium 143 (135-145) mmol/L Potassium 3.7 (3.5-5.1) mmol/L Chloride 112 H (98-107) mmol/L Carbon Dioxide 21 L (22-30) mmol/L Anion Gap 13.5 (5-15) MEQ/L BUN 17 (9-20) mg/dL Creatinine 1.18 (0.66-1.25) mg/dL Estimated GFR 72.4 ML/MIN Glucose 112 H (74-106) mg/dL Hemoglobin A1c 5.16 (4.5-6.0) % Lactic Acid (0.4-2.0) Calcium 9.0 (8.4-10.2) mg/dL Total Bilirubin 0.90 (0.2-1.3) mg/dL AST 26 (17-59) U/L ALT 29 (0-50) U/L Alkaline Phosphatase 39 (38-126) U/L Troponin I (0.000-0.033) ng/mL Serum Total Protein 6.3 (6.3-8.2) g/dL Albumin 3.8 (3.5-5.0) g/dL Radiology Exams: Radiology Procedures Category Date Time Status ABDOMEN AND PELVIS W CONTRAST [CT] Stat Exams 01/16/24 12:08 Completed Assessment/Plan (1) Acute cholecystitis Current Visit: Yes Status: Acute Code(s): K81.0 - ACUTE CHOLECYSTITIS (2) Sepsis Current Visit: Yes Status: Acute (3) Anxiety Current Visit: Yes Status: Chronic Code(s): F41.9 - ANXIETY DISORDER, UNSPECIFIED (4) BPH (benign prostatic hyperplasia) Current Visit: Yes Status: Chronic Code(s): N40.0 - BENIGN PROSTATIC HYPERPLASIA WITHOUT LOWER URINRY TRACT SYMP (5) Obesity (BMI 30.0-34.9) Current Visit: Yes Status: Chronic Code(s): E66.811 - OBESITY, CLASS 1 (6) Metabolic acidosis Current Visit: Yes Status: Acute Code(s): E87.20 - ACIDOSIS, UNSPECIFIED (7) Dehydration Current Visit: Yes Status: Acute Assessment & Plan: (1) Acute cholecystitis Current Visit: Yes Status: Acute Assessment & Plan: - IV zosyn - PRN nausea meds - IV Morphine PRN - Plan is for surgery in AM - NPO at midnight - IV fluid bolus x2 - BC x2 - CBC, CMP reviewed - as seen on CT abd/pelvis 01/16 - plan is for surgery this afternoon/ evening - WBC 11.1 - CBC, CMP reviewed - Continue IV antibiotic - increased morphine to 4mg Q2 PRN Code(s): K81.0 - ACUTE CHOLECYSTITIS (2) Sepsis Current Visit: Yes Status: Acute Assessment & Plan: - 2:2 cholecystitis - Lactic acid on admission 2.6 1 lNS gave then LA repeated in ER and 2.2 - repeat 1L NS bolus- will recheck LA 3 hours after - Resp > 20, HR > 90, Co2 18 - IV antibiotics - UC negative - BC x2 01/16 - Lactic acid 1.0- resolved (3) Anxiety Current Visit: Yes Status: Chronic Assessment & Plan: - Continue Zoloft Code(s): F41.9 - ANXIETY DISORDER, UNSPECIFIED (4) BPH (benign prostatic hyperplasia) Current Visit: Yes Status: Chronic Assessment & Plan: - continue flomax Code(s): N40.0 - BENIGN PROSTATIC HYPERPLASIA WITHOUT LOWER URINRY TRACT SYMP (5) Obesity (BMI 30.0-34.9) Current Visit: Yes Status: Chronic Assessment & Plan: - advised diet and exercise control Code(s): E66.811 - OBESITY, CLASS 1 (6) Metabolic acidosis Current Visit: Yes Status: Acute Assessment & Plan: - 2:2 N/V/D - IVF - Co2 18- trend 01/16 - Co2 21- improved- trend Code(s): E87.20 - ACIDOSIS, UNSPECIFIED (7) Dehydration Current Visit: Yes Status: Acute Assessment & Plan: - IVF - anion gap 17- trend - 2:2 N/V/D - start clears today then NPO at midnight for surgery in AM 01/16 - resolved VTE: SCD's PPI: protonix Next of KIN: spouse- Preet Castro [phone] D/C plan: tomorrow Code status: Full Code(s): E86.0 - DEHYDRATION Code(s): E86.0 - DEHYDRATION
[2024-01-17] MEDS ORDERED: FEVERALL 650 MG PR PRN (17:12)
[2024-01-17] MEDS ORDERED: TYLENOL 325 MG PO PRN (17:12)
[2024-01-17] MEDS: Flomax 0.4 MG PO SCH (18:52)
[2024-01-17] MEDS: ZOLOFT 50 MG TABLET PO SCH (18:52)
[2024-01-17] MEDS: MORPHINE SULFATE 2 MG INJ IV PRN (19:19)
[2024-01-17] MEDS: NORCO 5/325 MG PO PRN (21:23)
[2024-01-18 05:07] LABS: Hematocrit 42.6 % (40.1-51.0); Hemoglobin 14.2 g/dL (13.7-17.5); Mean Cell Volume 86.2 fL (79.0-92.2); Mean Corpuscular Hemoglobin 28.7 pg (25.7-32.2); Mean Corpuscular Hgb Concent. 33.3 g/dL (32.3-36.5); Mean Platelet Volume 11.2 fL (9.4-12.4); Platelet Count 194 x10^3/uL (163-337); Red Blood Count 4.94 x10^6/uL (4.63-6.08); Red Cell Distribution Width 13.1 % (11.6-14.4); White Blood Count 9.1 x10^3/uL (4.23-9.07)
[2024-01-18 05:27] LABS: ALBUMIN 3.7 g/dL (3.5-5.0); ANION GAP 11.3 MEQ/L (5-15); BILIRUBIN,TOTAL 1.6 mg/dL (0.2-1.3); Calcium 8.8 mg/dL (8.4-10.2); Creatinine 1 1.37 mg/dL (0.66-1.25); EST GLOMERULAR FILTRATION RATE 60.5 ML/MIN; Potassium 3.5 mmol/L (3.5-5.1); Total Protein 6.2 g/dL (6.3-8.2)
--- NOTE | 2024-01-18 10:15 | PCM.NOTE ---
Date and Time: 01/18/24 1012 Subjective Assessment: 01/16/24 is a 58 year old male with pmhx of anxiety, BPH, and obesity. He presented in the ER with sudden onset moderate to severe abdominal pain with associated nausea and multiple episodes of nonprojectile, nonbilious vomiting without hematemesis for almost half an hour prior to arrival. Patient reports moderate intensity sharp cramping with no significant aggravating or relieving factors. Does report having loose stool this morning. No fever or chills reported. Denies any chest pain palpitations or shortness of breath. No fever or chills reported. In ER he was found to be septic with a lactic acid of 2.6, and repeat of 2.2. WBC 10,5, Co2 18, elevated resp and HR. CT shows distended gallbladder. General surgery called by ER physician and plan is for surgery in AM. Pt to be NPO after midnight. Nausea has resolved since admission. 01/17/24 Pt resting in bed. He has had increased pain all night and receiving morphine 2 mg Q2 hours. Increased pain med to 4mg Q2 hours. Continue Zosyn. Plan is for surgery this evening. Lactic acid WNL today. Pt denies any further concerns at this time. 01/18/24 Pt resting in bed. He continues to have abd pain. Dr. Burdick came to see pt today and recommended pt stay another day as WBC, Bili, and liver enzymes elevated. Pt wanted to leave today and not happy about this. Morphine stopped. Continue [place] for pain PRN. Pt denies CP, SOB, N/V/D. - Review of Systems Constitutional: No Fever, No Chills Eyes: No Symptoms Ears, Nose, & Throat: No Symptoms Respiratory: No Cough, No Short Of Breath Cardiac: No Chest Pain, No Edema, No Syncope Abdominal/Gastrointestinal: Abdominal Pain, No Nausea, No Vomiting, No Diarrhea Genitourinary Symptoms: No Dysuria Musculoskeletal: No Back Pain, No Neck Pain Skin: No Rash Neurological: No Dizziness, No Focal Weakness, No Sensory Changes Psychological: No Symptoms Endocrine: No Symptoms Hematologic/Lymphatic: No Symptoms Immunological/Allergic: No Symptoms Objective Exam General Appearance: no apparent distress, alert Neurologic Exam: alert, oriented x 3, cooperative, normal mood/affect, nml cerebellar function, sensation nml, No motor deficits Skin Exam: normal color, warm, dry Wound Assessment: Skin/Wound Assessment Wound/Incision Assessment Start: 01/16/24 17:44 Text: Status: Active Freq: Protocol: Document 01/17/24 17:21 EK (Rec: 01/17/24 17:22 EK [id number]) Wound/Incision Assessment Abdomen Wound Assessment New Finding Wound Type LAPAROSCOPIC PUNCTURE X 4 Dressing Status Dry & Intact Drainage Amount None Comment DRESSING C/D/I - NO SHADOWING NOTED Wound Photo Photo Taken No Eye Exam: PERRL, EOMI, eyes nml inspection Ears, Nose, Throat Exam: normal ENT inspection, pharynx normal, moist mucous membranes Neck Exam: normal inspection, non-tender, supple, full range of motion Respiratory Exam: normal breath sounds, lungs clear, No respiratory distress Cardiovascular Exam: regular rate/rhythm, normal heart sounds Gastrointestinal/Abdomen Exam: soft, normal bowel sounds, tenderness, No mass Extremity Exam: normal inspection, normal range of motion Back Exam: normal inspection, normal range of motion, No CVA tenderness, No vertebral tenderness Male Genitalia Exam: deferred Rectal Exam: deferred Objective Data Vital Signs: Vital Signs - 24 hr Temp Pulse Resp BP Pulse Ox 01/18/24 07:00 97.1 F 60 18 128/66 94 L 01/18/24 03:00 97.7 F 57 L 20 130/58 92 L 01/17/24 23:00 97.0 F 63 22 115/66 93 L 01/17/24 22:07 96 01/17/24 19:25 97.5 F 65 18 134/72 93 L 01/17/24 19:20 69 20 134/74 94 L 01/17/24 18:15 96.6 F 66 17 128/78 94 L 01/17/24 17:40 65 136/80 90 L 01/17/24 17:20 69 135/79 90 L 01/17/24 17:05 65 133/77 91 L 01/17/24 16:50 98.1 F 93 H 167/97 90 L 01/17/24 11:31 97.3 F 55 L 16 101/56 91 L Pain Assessment - Last Documented Pain Intensity 6 Pain Scale Used 0-10 Pain Scale Intake and Output: Intake & Output 11/19/24 11/20/24 11/21/24 11/22/24 11:59 11:59 11:59 11:59 Intake Total 200 900 Balance 200 900 Weight 106.594 kg 106.3 kg Lab Results: Lab Results-Last 24 Hours 01/17/24 01/18/24 01/18/24 Range/Units 05:15 04:40 04:40 WBC 9.1 H (4.23-9.07) x10^3/uL RBC 4.94 (4.63-6.08) x10^6/uL Hgb 14.2 (13.7-17.5) g/dL Hct 42.6 (40.1-51.0) % MCV 86.2 (79.0-92.2) fL MCH 28.7 (25.7-32.2) pg MCHC 33.3 (32.3-36.5) g/dL RDW 13.1 (11.6-14.4) % Plt Count 194 (163-337) x10^3/uL MPV 11.2 (9.4-12.4) fL Sodium 142 (135-145) mmol/L Potassium 3.5 (3.5-5.1) mmol/L Chloride 110 H (98-107) mmol/L Carbon Dioxide 24 (22-30) mmol/L Anion Gap 11.3 (5-15) MEQ/L BUN 19 (9-20) mg/dL Creatinine 1.37 H (0.66-1.25) mg/dL Estimated GFR 60.5 ML/MIN Glucose 99 (74-106) mg/dL Hemoglobin A1c 5.16 (4.5-6.0) % Calcium 8.8 (8.4-10.2) mg/dL Total Bilirubin 1.60 H (0.2-1.3) mg/dL AST 129 H (17-59) U/L ALT 123 H (0-50) U/L Alkaline Phosphatase 45 (38-126) U/L Serum Total Protein 6.2 L (6.3-8.2) g/dL Albumin 3.7 (3.5-5.0) g/dL Radiology Exams: Radiology Procedures Category Date Time Status ABDOMEN AND PELVIS W CONTRAST [CT] Stat Exams 01/16/24 12:08 Completed Assessment/Plan (1) Acute cholecystitis Current Visit: Yes Status: Acute Code(s): K81.0 - ACUTE CHOLECYSTITIS (2) Sepsis Current Visit: Yes Status: Acute (3) Anxiety Current Visit: Yes Status: Chronic Code(s): F41.9 - ANXIETY DISORDER, UNSPECIFIED (4) BPH (benign prostatic hyperplasia) Current Visit: Yes Status: Chronic Code(s): N40.0 - BENIGN PROSTATIC HYPERPLASIA WITHOUT LOWER URINRY TRACT SYMP (5) Obesity (BMI 30.0-34.9) Current Visit: Yes Status: Chronic Code(s): E66.811 - OBESITY, CLASS 1 (6) Metabolic acidosis Current Visit: Yes Status: Acute Code(s): E87.20 - ACIDOSIS, UNSPECIFIED (7) Dehydration Current Visit: Yes Status: Acute Assessment & Plan: (1) Acute cholecystitis Current Visit: Yes Status: Acute Assessment & Plan: - IV zosyn - PRN nausea meds - IV Morphine PRN - Plan is for surgery in AM - NPO at midnight - IV fluid bolus x2 - BC x2 - CBC, CMP reviewed - as seen on CT abd/pelvis 01/16 - plan is for surgery this afternoon/ evening - WBC 11.1 - CBC, CMP reviewed - Continue IV antibiotic - increased morphine to 4mg Q2 PRN 01/17 - WBC 9.1- improved - Continued abd pain. - Continue norco PRN pain - Stop IV morphine - AST/ ALT elevated - CBC, CMP reviewed Code(s): K81.0 - ACUTE CHOLECYSTITIS (2) Sepsis Current Visit: Yes Status: Acute Assessment & Plan: - 2:2 cholecystitis - Lactic acid on admission 2.6 1 lNS gave then LA repeated in ER and 2.2 - repeat 1L NS bolus- will recheck LA 3 hours after - Resp > 20, HR > 90, Co2 18 - IV antibiotics - UC negative - BC x2 01/16 - Lactic acid 1.0- resolved (3) Anxiety Current Visit: Yes Status: Chronic Assessment & Plan: - Continue Zoloft Code(s): F41.9 - ANXIETY DISORDER, UNSPECIFIED (4) BPH (benign prostatic hyperplasia) Current Visit: Yes Status: Chronic Assessment & Plan: - continue flomax Code(s): N40.0 - BENIGN PROSTATIC HYPERPLASIA WITHOUT LOWER URINRY TRACT SYMP (5) Obesity (BMI 30.0-34.9) Current Visit: Yes Status: Chronic Assessment & Plan: - advised diet and exercise control Code(s): E66.811 - OBESITY, CLASS 1 (6) Metabolic acidosis Current Visit: Yes Status: Acute Assessment & Plan: - 2:2 N/V/D - IVF - Co2 18- trend 01/16 - Co2 21- improved- trend 01/17 - resolved Code(s): E87.20 - ACIDOSIS, UNSPECIFIED (7) Dehydration Current Visit: Yes Status: Acute Assessment & Plan: - IVF - anion gap 17- trend - 2:2 N/V/D - start clears today then NPO at midnight for surgery in AM 01/16 - resolved 01/17 - Creat 1.37- encouraged oral fluid intake since hospital on IVF shortage VTE: SCD's PPI: protonix Next of KIN: spouse- Preet Castro [phone] D/C plan: tomorrow Code status: Full Code(s): E86.0 - DEHYDRATION (8) Transaminitis Current Visit: Yes Status: Acute Assessment & Plan: - AST 129, ALT 123- trend - likely 2:2 recent surgery Code(s): R74.01 - ELEVATION OF LEVELS OF LIVER TRANSAMINASE LEVELS
[2024-01-18] MEDS: MOTRIN 400 MG PO ONE (23:05)
[2024-01-19 05:47] LABS: Hematocrit 43.5 % (40.1-51.0); Hemoglobin 14.4 g/dL (13.7-17.5); Mean Cell Volume 86.8 fL (79.0-92.2); Mean Corpuscular Hemoglobin 28.7 pg (25.7-32.2); Mean Corpuscular Hgb Concent. 33.1 g/dL (32.3-36.5); Mean Platelet Volume 10.7 fL (9.4-12.4); Platelet Count 187 x10^3/uL (163-337); Red Blood Count 5.01 x10^6/uL (4.63-6.08); Red Cell Distribution Width 12.5 % (11.6-14.4); White Blood Count 7.8 x10^3/uL (4.23-9.07)
[2024-01-19 06:00] LABS: ALBUMIN 3.9 g/dL (3.5-5.0); ANION GAP 11.4 MEQ/L (5-15); BILIRUBIN,TOTAL 2.4 mg/dL (0.2-1.3); Creatinine 1 1.37 mg/dL (0.66-1.25); EST GLOMERULAR FILTRATION RATE 60.5 ML/MIN; Potassium 3.2 mmol/L (3.5-5.1); Total Protein 6.6 g/dL (6.3-8.2)
--- NOTE | 2024-01-19 09:27 | PCM.DS ---
Discharge Summary Date of Admission: 01/16/24 17:37 Date of Discharge: 01/19/24 Admitting Physician: NAIMA PENNY MD Primary Care Provider: KATIE BULLARD Allergies Allergies No Known Drug Allergies Allergy (Verified 01/16/24 17:44) Hospital Summary - Hospital Course Hospital Course: 01/16/24 is a 58 year old male with pmhx of anxiety, BPH, and obesity. He presented in the ER with sudden onset moderate to severe abdominal pain with associated nausea and multiple episodes of nonprojectile, nonbilious vomiting without hematemesis for almost half an hour prior to arrival. Patient reports moderate intensity sharp cramping with no significant aggravating or relieving factors. Does report having loose stool this morning. No fever or chills reported. Denies any chest pain palpitations or shortness of breath. No fever or chills reported. In ER he was found to be septic with a lactic acid of 2.6, and repeat of 2.2. WBC 10,5, Co2 18, elevated resp and HR. CT shows distended gallbladder. General surgery called by ER physician and plan is for surgery in AM. Pt to be NPO after midnight. Nausea has resolved since admission. 01/17/24 Pt resting in bed. He has had increased pain all night and receiving morphine 2 mg Q2 hours. Increased pain med to 4mg Q2 hours. Continue Zosyn. Plan is for surgery this evening. Lactic acid WNL today. Pt denies any further concerns at this time. 01/18/24 Pt resting in bed. He continues to have abd pain. Dr. Burdick came to see pt today and recommended pt stay another day as WBC, Bili, and liver enzymes elevated. Pt wanted to leave today and not happy about this. Morphine stopped. Continue [place] for pain PRN. Pt denies CP, SOB, N/V/D. 01/19/24 Pt resting in the chair. He states he is feeling better and wants to d/c today. Will d/c if ok with surgery. ALT, and bili increased. Unable to do US as they are not available on the weekends at this hospital. WBC improved. K+ 3.2 and replaced. Encouraged pt to drink water as Creat 1.37. He states he has been drinking [place] and does not like water. 500ml fluid bolus ordered. Will recheck labs this afternoon. Per nightshift nurse pt c/o increased abd pain and that NOrco was not controlling his pain well. Overnight provider called and IBP added. Pt states pain improved this AM. He denies CP, SOB, N/V/D. - Vitals & Intake/Output Vital Signs: Vital Signs Temperature 97.3 F 01/19/24 07:10 Pulse Rate 62 01/19/24 07:10 Respiratory Rate 20 01/19/24 07:10 Blood Pressure 104/68 01/19/24 07:10 O2 Sat by Pulse Oximetry 94 L 01/19/24 07:10 Intake & Output: Intake & Output 01/16/24 01/17/24 01/18/24 01/19/24 11:59 11:59 11:59 11:59 Intake Total 026 603 5576 Balance 312 804 7417 Weight 106.594 kg 106.3 kg - Lab Result Diagrams: 01/19/24 05:10 01/19/24 05:10 Lab Results-Last 24 Hrs: Lab Results-Last 24 Hours 01/19/24 01/19/24 Range/Units 05:10 05:10 WBC 7.8 (4.23-9.07) x10^3/uL RBC 5.01 (4.63-6.08) x10^6/uL Hgb 14.4 (13.7-17.5) g/dL Hct 43.5 (40.1-51.0) % MCV 86.8 (79.0-92.2) fL MCH 28.7 (25.7-32.2) pg MCHC 33.1 (32.3-36.5) g/dL RDW 12.5 (11.6-14.4) % Plt Count 187 (163-337) x10^3/uL MPV 10.7 (9.4-12.4) fL Sodium 140 (135-145) mmol/L Potassium 3.2 L (3.5-5.1) mmol/L Chloride 106 (98-107) mmol/L Carbon Dioxide 26 (22-30) mmol/L Anion Gap 11.4 (5-15) MEQ/L BUN 17 (9-20) mg/dL Creatinine 1.37 H (0.66-1.25) mg/dL Estimated GFR 60.5 ML/MIN Glucose 118 H (74-106) mg/dL Calcium 9.0 (8.4-10.2) mg/dL Total Bilirubin 2.40 H (0.2-1.3) mg/dL AST 87 H (17-59) U/L ALT 162 H (0-50) U/L Alkaline Phosphatase 46 (38-126) U/L Serum Total Protein 6.6 (6.3-8.2) g/dL Albumin 3.9 (3.5-5.0) g/dL Micro Results-Entire Visit: Microbiology 01/16/24 13:26 Urine Culture - Final Clean Catch Midstream <10K NORMAL SKIN KIMMIE PROBABLE SKIN CONTAMINANT 01/16/24 18:27 Blood Culture - Preliminary Blood 01/16/24 18:20 Blood Culture - Preliminary Blood Discharge Exam General Appearance: no apparent distress, alert, obese Neurologic Exam: alert, oriented x 3, cooperative, normal mood/affect, nml cerebellar function, sensation nml, No motor deficits Eye Exam: PERRL, EOMI, eyes nml inspection Ears, Nose, Throat Exam: normal ENT inspection, pharynx normal, moist mucous membranes Neck Exam: normal inspection, non-tender, supple, full range of motion Respiratory Exam: normal breath sounds, lungs clear, No respiratory distress Cardiovascular Exam: regular rate/rhythm, normal heart sounds Gastrointestinal/Abdomen Exam: soft, tenderness (RUQ with palpation), No mass Male Genitalia Exam: deferred Rectal Exam: deferred Back Exam: normal inspection, normal range of motion, No CVA tenderness, No vertebral tenderness Extremity Exam: normal inspection, normal range of motion Skin Exam: normal color, warm, dry Wound Assessment: Skin/Wound Assessment Wound/Incision Assessment Start: 01/16/24 17:44 Text: Status: Active Freq: Q6H Protocol: Document 01/19/24 02:00 TS (Rec: 01/19/24 02:13 TS [id number]) Wound/Incision Assessment Abdomen Wound Assessment Shift Assessment Wound Type Incision Wound Stage Non Pressure Wound Dressing Status Dry & Intact Drainage Amount None Drainage Odor None/Absent Comment X4 surgical incisions . Wound Photo Photo Taken No Final Diagnosis/Problem List - Final Discharge Diagnosis/Problem (1) Acute cholecystitis Current Visit: Yes Status: Acute Code(s): K81.0 - ACUTE CHOLECYSTITIS (2) Sepsis Current Visit: Yes Status: Acute (3) Anxiety Current Visit: Yes Status: Chronic Code(s): F41.9 - ANXIETY DISORDER, UNSPECIFIED (4) BPH (benign prostatic hyperplasia) Current Visit: Yes Status: Chronic Code(s): N40.0 - BENIGN PROSTATIC HYPERPLASIA WITHOUT LOWER URINRY TRACT SYMP (5) Obesity (BMI 30.0-34.9) Current Visit: Yes Status: Chronic Code(s): E66.811 - OBESITY, CLASS 1 (6) Metabolic acidosis Current Visit: Yes Status: Acute Code(s): E87.20 - ACIDOSIS, UNSPECIFIED (7) Dehydration Current Visit: Yes Status: Acute Code(s): E86.0 - DEHYDRATION (8) Transaminitis Current Visit: Yes Status: Acute Assessment & Plan: (1) Acute cholecystitis Current Visit: Yes Status: Acute Assessment & Plan: - IV zosyn - PRN nausea meds - IV Morphine PRN - Plan is for surgery in AM - NPO at midnight - IV fluid bolus x2 - BC x2 - CBC, CMP reviewed - as seen on CT abd/pelvis 01/16 - plan is for surgery this afternoon/ evening - WBC 11.1 - CBC, CMP reviewed - Continue IV antibiotic - increased morphine to 4mg Q2 PRN 01/17 - WBC 9.1- improved - Continued abd pain. - Continue norco PRN pain - Stop IV morphine - AST/ ALT elevated - CBC, CMP reviewed 01/18 - CBC, CMP reviewed - Leukocytosis resolved - IBP added for pain last night - pending surg recs - AST improved, ALT increased - Bili increased Code(s): K81.0 - ACUTE CHOLECYSTITIS (2) Sepsis Current Visit: Yes Status: Acute Assessment & Plan: - 2:2 cholecystitis - Lactic acid on admission 2.6 1 lNS gave then LA repeated in ER and 2.2 - repeat 1L NS bolus- will recheck LA 3 hours after - Resp > 20, HR > 90, Co2 18 - IV antibiotics - UC negative - BC x2 01/16 - Lactic acid 1.0- resolved (3) Anxiety Current Visit: Yes Status: Chronic Assessment & Plan: - Continue Zoloft Code(s): F41.9 - ANXIETY DISORDER, UNSPECIFIED (4) BPH (benign prostatic hyperplasia) Current Visit: Yes Status: Chronic Assessment & Plan: - continue flomax Code(s): N40.0 - BENIGN PROSTATIC HYPERPLASIA WITHOUT LOWER URINRY TRACT SYMP (5) Obesity (BMI 30.0-34.9) Current Visit: Yes Status: Chronic Assessment & Plan: - advised diet and exercise control Code(s): E66.811 - OBESITY, CLASS 1 (6) Metabolic acidosis Current Visit: Yes Status: Acute Assessment & Plan: - 2:2 N/V/D - IVF - Co2 18- trend 01/16 - Co2 21- improved- trend 01/17 - resolved Code(s): E87.20 - ACIDOSIS, UNSPECIFIED (7) Dehydration Current Visit: Yes Status: Acute Assessment & Plan: - IVF - anion gap 17- trend - 2:2 N/V/D - start clears today then NPO at midnight for surgery in AM 01/16 - resolved 01/17 - Creat 1.37- encouraged oral fluid intake since hospital on IVF shortage 01/18 - Creat 1.37 - 500ml NS bolus Code(s): E86.0 - DEHYDRATION (8) Transaminitis Current Visit: Yes Status: Acute Assessment & Plan: - AST 129, ALT 123- trend - likely 2:2 recent surgery 01/18 - ALT 87- improved, ALT 162- increased - unable to do US on the weekend as not available Code(s): R74.01 - ELEVATION OF LEVELS OF LIVER TRANSAMINASE LEVELS Code(s): R74.01 - ELEVATION OF LEVELS OF LIVER TRANSAMINASE LEVELS (9) Elevated bilirubin Current Visit: Yes Status: Acute Assessment & Plan: - Bili 2.40 - awaiting surg recs Code(s): R17 - UNSPECIFIED JAUNDICE (10) Hypokalemia Current Visit: Yes Status: Acute Assessment & Plan: - K+ 3.2- replaced- trend- will recheck this afternoon VTE: SCD's PPI: protonix Next of KIN: spouse- Preet Castro [phone] D/C plan: tomorrow? Code status: Full Code(s): E87.6 - HYPOKALEMIA - Discharge Discharge Date: 01/19/24 Disposition: Home, Self-Care Condition: Stable Prescriptions: New Hydrocodone/Acetaminophen [Hydrocodone-Acetamin 5-325 mg] 1 tab PO Q4HPRN PRN 5 Days #20 tablet MDD 5 PRN Reason: Pain No Action Tamsulosin HCl 0.4 mg [Flomax 0.4 MG] 0.4 mg PO DAILY Sertraline HCl 50 mg [Zoloft 50 mg Tablet] 50 mg PO DAILY Instructions: Appendectomy - Discharge instructions Follow up with: JACKIE BURDICK [ACTIVE STAFF] - 02/14/24 9:35 am ([facility]) TAYLOR GALVEZ PA [Primary Care Provider] - Call for Appointment
[2024-01-19] MEDS: Klor Con PO SCH (09:38)
[2024-01-19] MEDS: Sodium Chloride 0.9% 500 ML 500 ML IV ONE (09:41)
--- NOTE | 2024-01-19 10:19 | PCM.NOTE ---
Date and Time: 01/19/24 1013 Subjective Assessment: 01/16/24 is a 58 year old male with pmhx of anxiety, BPH, and obesity. He presented in the ER with sudden onset moderate to severe abdominal pain with associated nausea and multiple episodes of nonprojectile, nonbilious vomiting without hematemesis for almost half an hour prior to arrival. Patient reports moderate intensity sharp cramping with no significant aggravating or relieving factors. Does report having loose stool this morning. No fever or chills reported. Denies any chest pain palpitations or shortness of breath. No fever or chills reported. In ER he was found to be septic with a lactic acid of 2.6, and repeat of 2.2. WBC 10,5, Co2 18, elevated resp and HR. CT shows distended gallbladder. General surgery called by ER physician and plan is for surgery in AM. Pt to be NPO after midnight. Nausea has resolved since admission. 01/17/24 Pt resting in bed. He has had increased pain all night and receiving morphine 2 mg Q2 hours. Increased pain med to 4mg Q2 hours. Continue Zosyn. Plan is for surgery this evening. Lactic acid WNL today. Pt denies any further concerns at this time. 01/18/24 Pt resting in bed. He continues to have abd pain. Dr. Burdick came to see pt today and recommended pt stay another day as WBC, Bili, and liver enzymes elevated. Pt wanted to leave today and not happy about this. Morphine stopped. Continue [place] for pain PRN. Pt denies CP, SOB, N/V/D. 01/19/24 Pt resting in the chair. He states he is feeling better and wants to d/c today. Will d/c if ok with surgery. ALT, and bili increased. Unable to do US as they are not available on the weekends at this hospital. WBC improved. K+ 3.2 and replaced. Encouraged pt to drink water as Creat 1.37. He states he has been drinking Starry and does not like water. 500ml fluid bolus ordered. Will recheck labs this afternoon. Per second shift supervisor nurse pt c/o increased abd pain and that [place] was not controlling his pain well. Overnight provider called and IBP added. Pt states pain improved this AM. He denies CP, SOB, N/V/D. Per GS pt is to have Hida scan Sunday. However, per GS if labs improve then he can d/c and f/u OP. - Review of Systems Constitutional: No Fever, No Chills Eyes: No Symptoms Ears, Nose, & Throat: No Symptoms Respiratory: No Cough, No Short Of Breath Cardiac: No Chest Pain, No Edema, No Syncope Abdominal/Gastrointestinal: Abdominal Pain (RUQ), No Nausea, No Vomiting, No Diarrhea Genitourinary Symptoms: No Dysuria Musculoskeletal: No Back Pain, No Neck Pain Skin: No Rash Neurological: No Dizziness, No Focal Weakness, No Sensory Changes Psychological: No Symptoms Endocrine: No Symptoms Hematologic/Lymphatic: No Symptoms Immunological/Allergic: No Symptoms Objective Exam General Appearance: no apparent distress, alert Neurologic Exam: alert, oriented x 3, cooperative, normal mood/affect, nml cerebellar function, sensation nml, No motor deficits Skin Exam: normal color, warm, dry Wound Assessment: Skin/Wound Assessment Wound/Incision Assessment Start: 01/16/24 17:44 Text: Status: Active Freq: Q6H Protocol: Document 01/19/24 08:40 JV (Rec: 01/19/24 09:22 JV [id number]) Wound/Incision Assessment Abdomen Wound Assessment Shift Assessment Wound Type Incision Wound Stage Non Pressure Wound Dressing Status Dry & Intact Drainage Amount None Drainage Odor None/Absent Comment POD #2 cholecystectomy. 4 surgical incisions, dressings C/D/I, no shadowing noted. Wound Photo Photo Taken No Eye Exam: PERRL, EOMI, eyes nml inspection Ears, Nose, Throat Exam: normal ENT inspection, pharynx normal, moist mucous membranes Neck Exam: normal inspection, non-tender, supple, full range of motion Respiratory Exam: normal breath sounds, lungs clear, No respiratory distress Cardiovascular Exam: regular rate/rhythm, normal heart sounds Gastrointestinal/Abdomen Exam: soft, tenderness (RUQ), No mass Extremity Exam: normal inspection, normal range of motion Back Exam: normal inspection, normal range of motion, No CVA tenderness, No vert ebral tenderness Male Genitalia Exam: deferred Rectal Exam: deferred Objective Data Vital Signs: Vital Signs - 24 hr Temp Pulse Resp BP Pulse Ox 01/19/24 07:10 97.3 F 62 20 104/68 94 L 01/19/24 03:55 97.7 F 100 H 18 115/70 96 01/18/24 23:50 98.5 F 104 H 19 154/89 95 01/18/24 20:00 97.9 F 90 17 124/77 93 L 01/18/24 15:00 97.6 F 86 18 125/64 92 L 01/18/24 11:00 69 20 122/64 93 L Pain Assessment - Last Documented Pain Intensity 3 Pain Scale Used 0-10 Pain Scale Intake and Output: Intake & Output 01/16/24 01/17/24 01/18/24 01/19/24 11:59 11:59 11:59 11:59 Intake Total 871 929 4634 Balance 628 985 4632 Weight 106.594 kg 106.3 kg Lab Results: Lab Results-Last 24 Hours 01/19/24 01/19/24 Range/Units 05:10 05:10 WBC 7.8 (4.23-9.07) x10^3/uL RBC 5.01 (4.63-6.08) x10^6/uL Hgb 14.4 (13.7-17.5) g/dL Hct 43.5 (40.1-51.0) % MCV 86.8 (79.0-92.2) fL MCH 28.7 (25.7-32.2) pg MCHC 33.1 (32.3-36.5) g/dL RDW 12.5 (11.6-14.4) % Plt Count 187 (163-337) x10^3/uL MPV 10.7 (9.4-12.4) fL Sodium 140 (135-145) mmol/L Potassium 3.2 L (3.5-5.1) mmol/L Chloride 106 (98-107) mmol/L Carbon Dioxide 26 (22-30) mmol/L Anion Gap 11.4 (5-15) MEQ/L BUN 17 (9-20) mg/dL Creatinine 1.37 H (0.66-1.25) mg/dL Estimated GFR 60.5 ML/MIN Glucose 118 H (74-106) mg/dL Calcium 9.0 (8.4-10.2) mg/dL Total Bilirubin 2.40 H (0.2-1.3) mg/dL AST 87 H (17-59) U/L ALT 162 H (0-50) U/L Alkaline Phosphatase 46 (38-126) U/L Serum Total Protein 6.6 (6.3-8.2) g/dL Albumin 3.9 (3.5-5.0) g/dL Radiology Exams: Radiology Procedures Category Date Time Status HIDA-GALL BLADDER [NUCMED] Routine Exams 01/21/24 08:00 Ordered Multi-Disciplinary Progress Notes: Multi-Disciplinary Progress Notes 01/18/24 10:22 Case Management Note by Varsha Braxton S/W PATIENT- HE CONTINUES TO DENY ANY NEW NEEDS AT TIME OF DC. HE REPORTS HIS CAN ASSIST HIM AT HOME IF NEEDED Initialized on 01/18/24 10:22 - END OF NOTE Assessment/Plan (1) Acute cholecystitis Current Visit: Yes Status: Acute Code(s): K81.0 - ACUTE CHOLECYSTITIS (2) Sepsis Current Visit: Yes Status: Acute (3) Anxiety Current Visit: Yes Status: Chronic Code(s): F41.9 - ANXIETY DISORDER, UNSPECIFIED (4) BPH (benign prostatic hyperplasia) Current Visit: Yes Status: Chronic Code(s): N40.0 - BENIGN PROSTATIC HYPERPLASIA WITHOUT LOWER URINRY TRACT SYMP (5) Obesity (BMI 30.0-34.9) Current Visit: Yes Status: Chronic Code(s): E66.811 - OBESITY, CLASS 1 (6) Metabolic acidosis Current Visit: Yes Status: Acute Code(s): E87.20 - ACIDOSIS, UNSPECIFIED (7) Dehydration Current Visit: Yes Status: Acute Code(s): E86.0 - DEHYDRATION (8) Transaminitis Current Visit: Yes Status: Acute Code(s): R74.01 - ELEVATION OF LEVELS OF LIVER TRANSAMINASE LEVELS (9) Elevated bilirubin Current Visit: Yes Status: Acute Code(s): R17 - UNSPECIFIED JAUNDICE (10) Hypokalemia Current Visit: Yes Status: Acute Assessment & Plan: (1) Acute cholecystitis Current Visit: Yes Status: Acute Assessment & Plan: - IV zosyn - PRN nausea meds - IV Morphine PRN - Plan is for surgery in AM - NPO at midnight - IV fluid bolus x2 - BC x2 - CBC, CMP reviewed - as seen on CT abd/pelvis 01/16 - plan is for surgery this afternoon/ evening - WBC 11.1 - CBC, CMP reviewed - Continue IV antibiotic - increased morphine to 4mg Q2 PRN 01/17 - WBC 9.1- improved - Continued abd pain. - Continue norco PRN pain - Stop IV morphine - AST/ ALT elevated - CBC, CMP reviewed 01/18 - CBC, CMP reviewed - Leukocytosis resolved - IBP added for pain last night - pending surg recs - AST improved, ALT increased - Bili increased - Hida scan Sunday if labs don't improve- if labs improve can d/c Sunday. Code(s): K81.0 - ACUTE CHOLECYSTITIS (2) Sepsis Current Visit: Yes Status: Acute Assessment & Plan: - 2:2 cholecystitis - Lactic acid on admission 2.6 1 lNS gave then LA repeated in ER and 2.2 - repeat 1L NS bolus- will recheck LA 3 hours after - Resp > 20, HR > 90, Co2 18 - IV antibiotics - UC negative - BC x2 01/16 - Lactic acid 1.0- resolved (3) Anxiety Current Visit: Yes Status: Chronic Assessment & Plan: - Continue Zoloft Code(s): F41.9 - ANXIETY DISORDER, UNSPECIFIED (4) BPH (benign prostatic hyperplasia) Current Visit: Yes Status: Chronic Assessment & Plan: - continue flomax Code(s): N40.0 - BENIGN PROSTATIC HYPERPLASIA WITHOUT LOWER URINRY TRACT SYMP (5) Obesity (BMI 30.0-34.9) Current Visit: Yes Status: Chronic Assessment & Plan: - advised diet and exercise control Code(s): E66.811 - OBESITY, CLASS 1 (6) Metabolic acidosis Current Visit: Yes Status: Acute Assessment & Plan: - 2:2 N/V/D - IVF - Co2 18- trend 01/16 - Co2 21- improved- trend 01/17 - resolved Code(s): E87.20 - ACIDOSIS, UNSPECIFIED (7) Dehydration Current Visit: Yes Status: Acute Assessment & Plan: - IVF - anion gap 17- trend - 2:2 N/V/D - start clears today then NPO at midnight for surgery in AM 01/16 - resolved 01/17 - Creat 1.37- encouraged oral fluid intake since hospital on IVF shortage 01/18 - Creat 1.37 - 500ml NS bolus Code(s): E86.0 - DEHYDRATION (8) Transaminitis Current Visit: Yes Status: Acute Assessment & Plan: - AST 129, ALT 123- trend - likely 2:2 recent surgery 01/18 - ALT 87- improved, ALT 162- increased - unable to do US on the weekend as not available Code(s): R74.01 - ELEVATION OF LEVELS OF LIVER TRANSAMINASE LEVELS Code(s): R74.01 - ELEVATION OF LEVELS OF LIVER TRANSAMINASE LEVELS (9) Elevated bilirubin Current Visit: Yes Status: Acute Assessment & Plan: - Bili 2.40 - awaiting surg recs Code(s): R17 - UNSPECIFIED JAUNDICE (10) Hypokalemia Current Visit: Yes Status: Acute Assessment & Plan: - K+ 3.2- replaced- trend- will recheck this afternoon VTE: SCD's PPI: protonix Next of KIN: spouse- Preet Castro [phone] D/C plan: tomorrow? Code status: Full Code(s): E87.6 - HYPOKALEMIA Code(s): E87.6 - HYPOKALEMIA
[2024-01-19 14:25] LABS: ALBUMIN 4.1 g/dL (3.5-5.0); ANION GAP 12.9 MEQ/L (5-15); BILIRUBIN,TOTAL 2.2 mg/dL (0.2-1.3); Calcium 9.2 mg/dL (8.4-10.2); Creatinine 1 1.35 mg/dL (0.66-1.25); EST GLOMERULAR FILTRATION RATE 61.6 ML/MIN; MAGNESIUM 1.9 mg/dL (1.6-2.3); Potassium 3.4 mmol/L (3.5-5.1)
[2024-01-19] MEDS: Lactated Ringers 1,000 ML IV SCH (15:33)
[2024-01-19] MEDS: DESYREL 50 MG PO PRN (22:52)
[2024-01-20 06:18] LABS: Hematocrit 41.1 % (40.1-51.0); Mean Cell Volume 85.4 fL (79.0-92.2); Mean Corpuscular Hemoglobin 29.1 pg (25.7-32.2); Mean Corpuscular Hgb Concent. 34.1 g/dL (32.3-36.5); Mean Platelet Volume 11.1 fL (9.4-12.4); Platelet Count 200 x10^3/uL (163-337); Red Blood Count 4.81 x10^6/uL (4.63-6.08); Red Cell Distribution Width 12.5 % (11.6-14.4); White Blood Count 8.2 x10^3/uL (4.23-9.07)
[2024-01-20 06:32] LABS: ALBUMIN 3.7 g/dL (3.5-5.0); ANION GAP 15.3 MEQ/L (5-15); BILIRUBIN,TOTAL 1.5 mg/dL (0.2-1.3); Creatinine 1 1.17 mg/dL (0.66-1.25); EST GLOMERULAR FILTRATION RATE 73.2 ML/MIN; Potassium 3.3 mmol/L (3.5-5.1); Total Protein 6.4 g/dL (6.3-8.2)
[2024-01-20 06:53] VITALS: BP 145/97; PULSE 70; RESP 20; TEMP 98.4; O2SAT 95
[2024-01-20] MEDS ORDERED: DESYREL 50 MG PO PRN (07:24)
[2024-01-20] MEDS: Klor Con PO SCH (07:58)
--- NOTE | 2024-01-20 08:35 | PCM.DS ---
Discharge Summary Date of Admission: 01/16/24 17:37 Date of Discharge: 01/20/24 Admitting Physician: NAIMA PENNY MD Primary Care Provider: KATIE BULLARD Allergies Allergies No Known Drug Allergies Allergy (Verified 01/16/24 17:44) Hospital Summary - Hospital Course Hospital Course: 01/16/24 is a 58 year old male with pmhx of anxiety, BPH, and obesity. He presented in the ER with sudden onset moderate to severe abdominal pain with associated nausea and multiple episodes of nonprojectile, nonbilious vomiting without hematemesis for almost half an hour prior to arrival. Patient reports moderate intensity sharp cramping with no significant aggravating or relieving factors. Does report having loose stool this morning. No fever or chills reported. Denies any chest pain palpitations or shortness of breath. No fever or chills reported. In ER he was found to be septic with a lactic acid of 2.6, and repeat of 2.2. WBC 10,5, Co2 18, elevated resp and HR. CT shows distended gallbladder. General surgery called by ER physician and plan is for surgery in AM. Pt to be NPO after midnight. Nausea has resolved since admission. 01/17/24 Pt resting in bed. He has had increased pain all night and receiving morphine 2 mg Q2 hours. Increased pain med to 4mg Q2 hours. Continue Zosyn. Plan is for surgery this evening. Lactic acid WNL today. Pt denies any further concerns at this time. 01/18/24 Pt resting in bed. He continues to have abd pain. Dr. Burdick came to see pt today and recommended pt stay another day as WBC, Bili, and liver enzymes elevated. Pt wanted to leave today and not happy about this. Morphine stopped. Continue [place] for pain PRN. Pt denies CP, SOB, N/V/D. 01/19/24 Pt resting in the chair. He states he is feeling better and wants to d/c today. Will d/c if ok with surgery. ALT, and bili increased. Unable to do US as they are not available on the weekends at this hospital. WBC improved. K+ 3.2 and replaced. Encouraged pt to drink water as Creat 1.37. He states he has been drinking [place] and does not like water. 500ml fluid bolus ordered. Will recheck labs this afternoon. Per police shift commander nurse pt c/o increased abd pain and that [place] was not controlling his pain well. Overnight provider called and IBP added. Pt states pain improved this AM. He denies CP, SOB, N/V/D. Per GS pt is to have Hida scan Sunday. However, per GS if labs improve then he can d/c and f/u OP. 01/20/24 Pt sitting up in the bed this morning. He states he feels better and has to leave today. Surgery reviewed labs and they are OK with D/C today as labs have improved. K+ 3.3 and replaced- will continue OP K+ replacement. He reports no Cp, SOB, abd. pain, N/V/D. He will need to f/u with PCP for repeat labs and GS OP. - Vitals & Intake/Output Vital Signs: Vital Signs Temperature 98.4 F 01/20/24 06:52 Pulse Rate 70 01/20/24 06:52 Respiratory Rate 20 01/20/24 06:52 Blood Pressure 145/97 01/20/24 06:52 O2 Sat by Pulse Oximetry 95 01/20/24 06:52 Intake & Output: Intake & Output 01/17/24 01/18/24 01/19/24 01/20/24 11:59 11:59 11:59 11:59 Intake Total 060 583 8133 1460 Balance 927 498 0144 1460 Weight 106.3 kg - Lab Result Diagrams: 01/20/24 05:39 01/20/24 05:39 Lab Results-Last 24 Hrs: Lab Results-Last 24 Hours 01/19/24 01/20/24 01/20/24 Range/Units 14:05 05:39 05:39 WBC 8.2 (4.23-9.07) x10^3/uL RBC 4.81 (4.63-6.08) x10^6/uL Hgb 14.0 (13.7-17.5) g/dL Hct 41.1 (40.1-51.0) % MCV 85.4 (79.0-92.2) fL MCH 29.1 (25.7-32.2) pg MCHC 34.1 (32.3-36.5) g/dL RDW 12.5 (11.6-14.4) % Plt Count 200 (163-337) x10^3/uL MPV 11.1 (9.4-12.4) fL Sodium 141 (135-145) mmol/L Potassium 3.4 L (3.5-5.1) mmol/L Chloride 107 (98-107) mmol/L Carbon Dioxide 25 (22-30) mmol/L Anion Gap 12.9 (5-15) MEQ/L BUN 16 (9-20) mg/dL Creatinine 1.35 H (0.66-1.25) mg/dL Estimated GFR 61.6 ML/MIN Glucose 111 H (74-106) mg/dL Calcium 9.2 (8.4-10.2) mg/dL Magnesium 1.9 1.9 (1.6-2.3) mg/dL Total Bilirubin 2.20 H (0.2-1.3) mg/dL AST 74 H (17-59) U/L ALT 156 H (0-50) U/L Alkaline Phosphatase 51 (38-126) U/L Serum Total Protein 7.0 (6.3-8.2) g/dL Albumin 4.1 (3.5-5.0) g/dL 01/20/24 Range/Units 05:39 WBC (4.23-9.07) x10^3/uL RBC (4.63-6.08) x10^6/uL Hgb (13.7-17.5) g/dL Hct (40.1-51.0) % MCV (79.0-92.2) fL MCH (25.7-32.2) pg MCHC (32.3-36.5) g/dL RDW (11.6-14.4) % Plt Count (163-337) x10^3/uL MPV (9.4-12.4) fL Sodium 142 (135-145) mmol/L Potassium 3.3 L (3.5-5.1) mmol/L Chloride 108 H (98-107) mmol/L Carbon Dioxide 21 L (22-30) mmol/L Anion Gap 15.3 H (5-15) MEQ/L BUN 14 (9-20) mg/dL Creatinine 1.17 (0.66-1.25) mg/dL Estimated GFR 73.2 ML/MIN Glucose 117 H (74-106) mg/dL Calcium 9.0 (8.4-10.2) mg/dL Magnesium (1.6-2.3) mg/dL Total Bilirubin 1.50 H (0.2-1.3) mg/dL AST 51 (17-59) U/L ALT 107 H (0-50) U/L Alkaline Phosphatase 52 (38-126) U/L Serum Total Protein 6.4 (6.3-8.2) g/dL Albumin 3.7 (3.5-5.0) g/dL Micro Results-Entire Visit: Microbiology 01/16/24 13:26 Urine Culture - Final Clean Catch Midstream <10K NORMAL SKIN KIMMIE PROBABLE SKIN CONTAMINANT 01/16/24 18:27 Blood Culture - Preliminary Blood 01/16/24 18:20 Blood Culture - Preliminary Blood - Radiology Exams Ordered Rad Exams-Entire Visit: Radiology Procedures Category Date Time Status HIDA-GALL BLADDER [NUCMED] Routine Exams 01/21/24 08:00 Ordered Discharge Exam General Appearance: no apparent distress, alert Neurologic Exam: alert, oriented x 3, cooperative, normal mood/affect, nml cerebellar function, sensation nml, No motor deficits Eye Exam: PERRL, EOMI, eyes nml inspection Ears, Nose, Throat Exam: normal ENT inspection, pharynx normal, moist mucous membranes Neck Exam: normal inspection, non-tender, supple, full range of motion Respiratory Exam: normal breath sounds, lungs clear, No respiratory distress Cardiovascular Exam: regular rate/rhythm, normal heart sounds Gastrointestinal/Abdomen Exam: soft, No tenderness, No mass Male Genitalia Exam: deferred Rectal Exam: deferred Back Exam: normal inspection, normal range of motion, No CVA tenderness, No vertebral tenderness Extremity Exam: normal inspection, normal range of motion Skin Exam: normal color, warm, dry Wound Assessment: Skin/Wound Assessment Wound/Incision Assessment Start: 01/16/24 17:44 Text: Status: Active Freq: Q6H Protocol: Document 01/20/24 08:00 COLTON (Rec: 01/20/24 08:13 COLTON [id number]) Wound/Incision Assessment Abdomen Wound Assessment Shift Assessment Wound Type Incision Wound Stage Non Pressure Wound Dressing Status Dry & Intact Drainage Amount None Drainage Odor None/Absent Comment POD #3 cholecystectomy. 4 surgical incisions, dressings C/D/I, no shadowing noted. Wound Photo Photo Taken No Final Diagnosis/Problem List - Final Discharge Diagnosis/Problem (1) Acute cholecystitis Current Visit: Yes Status: Acute Code(s): K81.0 - ACUTE CHOLECYSTITIS (2) Sepsis Current Visit: Yes Status: Acute (3) Anxiety Current Visit: Yes Status: Chronic Code(s): F41.9 - ANXIETY DISORDER, UNSPECIFIED (4) BPH (benign prostatic hyperplasia) Current Visit: Yes Status: Chronic Code(s): N40.0 - BENIGN PROSTATIC HYPERPLASIA WITHOUT LOWER URINRY TRACT SYMP (5) Obesity (BMI 30.0-34.9) Current Visit: Yes Status: Chronic Code(s): E66.811 - OBESITY, CLASS 1 (6) Metabolic acidosis Current Visit: Yes Status: Acute Code(s): E87.20 - ACIDOSIS, UNSPECIFIED (7) Dehydration Current Visit: Yes Status: Acute Code(s): E86.0 - DEHYDRATION (8) Transaminitis Current Visit: Yes Status: Acute Code(s): R74.01 - ELEVATION OF LEVELS OF LIVER TRANSAMINASE LEVELS (9) Elevated bilirubin Current Visit: Yes Status: Acute Code(s): R17 - UNSPECIFIED JAUNDICE (10) Hypokalemia Current Visit: Yes Status: Acute Assessment & Plan: (1) Acute cholecystitis Current Visit: Yes Status: Acute Assessment & Plan: - IV zosyn - PRN nausea meds - IV Morphine PRN - Plan is for surgery in AM - NPO at midnight - IV fluid bolus x2 - BC x2 - CBC, CMP reviewed - as seen on CT abd/pelvis 01/16 - plan is for surgery this afternoon/ evening - WBC 11.1 - CBC, CMP reviewed - Continue IV antibiotic - increased morphine to 4mg Q2 PRN 01/17 - WBC 9.1- improved - Continued abd pain. - Continue norco PRN pain - Stop IV morphine - AST/ ALT elevated - CBC, CMP reviewed - post op day #2 01/18 - CBC, CMP reviewed - Leukocytosis resolved - IBP added for pain last night - pending surg recs - AST improved, ALT increased - Bili increased - Hida scan Sunday if labs don't improve- if labs improve can d/c Sunday. - post OP day #3 01/19 - CBC, CMP reviewed - OK to d/c per GS- will f/u OP - post op day #4 - AST OK , ALT 107, bili 1.50 Code(s): K81.0 - ACUTE CHOLECYSTITIS (2) Sepsis Current Visit: Yes Status: Acute Assessment & Plan: - 2:2 cholecystitis - Lactic acid on admission 2.6 1 lNS gave then LA repeated in ER and 2.2 - repeat 1L NS bolus- will recheck LA 3 hours after - Resp > 20, HR > 90, Co2 18 - IV antibiotics - UC negative - BC x2 01/16 - Lactic acid 1.0- resolved (3) Anxiety Current Visit: Yes Status: Chronic Assessment & Plan: - Continue Zoloft Code(s): F41.9 - ANXIETY DISORDER, UNSPECIFIED (4) BPH (benign prostatic hyperplasia) Current Visit: Yes Status: Chronic Assessment & Plan: - continue flomax Code(s): N40.0 - BENIGN PROSTATIC HYPERPLASIA WITHOUT LOWER URINRY TRACT SYMP (5) Obesity (BMI 30.0-34.9) Current Visit: Yes Status: Chronic Assessment & Plan: - advised diet and exercise control Code(s): E66.811 - OBESITY, CLASS 1 (6) Metabolic acidosis Current Visit: Yes Status: Acute Assessment & Plan: - 2:2 N/V/D - IVF - Co2 18- trend 01/16 - Co2 21- improved- trend 01/17 - resolved Code(s): E87.20 - ACIDOSIS, UNSPECIFIED (7) Dehydration Current Visit: Yes Status: Acute Assessment & Plan: - IVF - anion gap 17- trend - 2:2 N/V/D - start clears today then NPO at midnight for surgery in AM 01/16 - resolved 01/17 - Creat 1.37- encouraged oral fluid intake since hospital on IVF shortage 01/18 - Creat 1.37 - 500ml NS bolus 01/19 - resolved Code(s): E86.0 - DEHYDRATION (8) Transaminitis Current Visit: Yes Status: Acute Assessment & Plan: - AST 129, ALT 123- trend - likely 2:2 recent surgery 01/18 - ALT 87- improved, ALT 162- increased - unable to do US on the weekend as not available 01/19 - AST OK , ALT 107- improved- will need repeat OP labs Code(s): R74.01 - ELEVATION OF LEVELS OF LIVER TRANSAMINASE LEVELS (9) Elevated bilirubin Current Visit: Yes Status: Acute Assessment & Plan: - Bili 2.40 - awaiting surg recs 01/19 - Bili 1.50- improved but still elevated - ok to d/c per Code(s): R17 - UNSPECIFIED JAUNDICE (10) Hypokalemia Current Visit: Yes Status: Acute Assessment & Plan: - K+ 3.2- replaced- trend- will recheck this afternoon 01/19 - K+ 3.3 replaced- will d/c with meds x3 days Code(s): E87.6 - HYPOKALEMIA - Discharge Discharge Date: 01/20/24 Disposition: Home, Self-Care Condition: Stable Prescriptions: New Hydrocodone/Acetaminophen [Hydrocodone-Acetamin 5-325 mg] 1 tab PO Q4HPRN PRN 5 Days #20 tablet MDD 5 PRN Reason: Pain Continue Tamsulosin HCl 0.4 mg [Flomax 0.4 MG] 0.4 mg PO DAILY Sertraline HCl 50 mg [Zoloft 50 mg Tablet] 50 mg PO DAILY Instructions: Appendectomy - Discharge instructions Follow up with: JACKIE BURDICK [ACTIVE STAFF] - 02/14/24 9:35 am ([place] Office) TAYLOR GALVEZ PA [Primary Care Provider] - Call for Appointment
--- NOTE | 2024-01-21 10:49 | OP ---
SURGERY DATE/TIME: 01/17/2024 [id number] - [id number] PREOPERATIVE DIAGNOSIS: Acute cholecystitis. POSTOPERATIVE DIAGNOSIS: Acute cholecystitis. PROCEDURE: Laparoscopic cholecystectomy. SURGEON: Kyle Burdick MD ANESTHESIA: General. DESCRIPTION OF PROCEDURE AND FINDINGS: Patient was taken to surgery. General anesthetic. Routine prep and drape. Veress needle inserted. Opening pressure of 1. Insufflated to a pressure of 14. Four 5's. Good visualization. It was markedly inflamed and thickened. Cystic duct defined. Cystic artery defined. Both structures triply Ligaclipped and transected. Clips totally cross wall approximated. Gallbladder rolled out of the gallbladder fossa. Gallbladder delivered through the epigastric port. It was widened somewhat. The hole closure device was deliberately used. The field was totally dry. CO2 was exsufflated. Skin was closed with 4-0 Vicryl. Steri-Strips were placed. Patient tolerated the procedure satisfactorily.
== END 2024-01-20 10:57 | disposition home or self-care (01) ==
LOC: ED 11:45 → MED SURG 17:37
PROVIDERS: ADMIT Internal Medicine; ATTEND Internal Medicine
DX: K81.0 Acute cholecystitis (principal); A41.9 Sepsis, unspecified organism; F41.9 Anxiety disorder, unspecified; N40.0 Benign prostatic hyperplasia without lower urinary tract symptoms; E66.811 Obesity, class 1; E87.20 Acidosis, unspecified; E86.0 Dehydration; R74.01 Elevation of levels of liver transaminase levels; R17 Unspecified jaundice; E87.6 Hypokalemia; E66.9 Obesity, unspecified; Z79.899 Other long term (current) drug therapy
CPT/HCPCS: 0241U; 36415; 47562; 74177; 80053; 81001; 83036; 83605; 83690; 83735; 84484; 85025; 85027; 87040; 87086; 87651; 93005; 93268; 96360; 96365; 96374; 96375; 99285; G0378; Q3014; J0330; J0694; J2175; J2250; J2270; J2405; J2704; J3010; A9270-GY